=== PATIENT | female | born 1935 | race Caucasian/White ===

== ENCOUNTER → 2021-01-04 10:45 | Outpatient (BNVA) | payer MEDICARE, SELFPAY | PROVIDERS: PCP Internal Medicine; Visit Provider Orthopaedic Surgery | DX: M17.0 Bilateral primary osteoarthritis of knee (principal) | CPT/HCPCS: 20610; 99212; J1040 ==

== ENCOUNTER 2021-08-22 08:39 | Emergency (ER) | payer MEDICARE, SELFPAY ==
--- NOTE | ~2021-08-22 | XR_ITS ---
EXAMINATION: XR KNEE, RIGHT CLINICAL INFORMATION: Pain COMPARISON: 08/13/2019 TECHNIQUE: Two views of the right knee. FINDINGS: No fracture or subluxation. Moderate to severe medial compartment joint space narrowing. Narrowing of the patellofemoral compartment. Tricompartmental prominent marginal osteophytes. No joint effusion. XR/XR knee RT 2V IMPRESSION: Severe tricompartmental degenerative changes of the right knee, similar to previous.
[2021-08-22 08:57] VITALS: BP 173/122; PULSE 108; RESP 18; TEMP 36.6; O2SAT 98; BMI 41.1
--- NOTE | 2021-08-22 09:41 | ED_ITS ---
HPI - Extremity Injury (Lower) General Chief Complaint: Extremity Injury, Lower Stated Complaint: rt leg/hip pain Time Seen by Provider: 08/22/21 09:40 Source: patient and family ( Daughter) Mode of arrival: ambulatory Limitations: no limitations History of Present Illness HPI Narrative: 86-year-old female came in for evaluation of right knee pain. Patient complain of chronic right knee pain, patient received intra-articular steroid injection regularly by an Orthopedic, patient declined any trauma or recent fall, patient is concerned because right knee frequent give out. No fever, no chills. Related Data Previous Rx's Medication Instructions Recorded ibuprofen 400 mg tablet 400 mg PO Q8H PRN #14 tab 08/22/21 ibuprofen 400 mg tablet 400 mg PO Q8H PRN #20 tab 08/22/21 Allergies Allergy/AdvReac Type Severity Reaction Status Date / Time No Known Allergies Allergy Verified 08/22/21 09:40 Review of Systems Review of Systems: All other systems are reviewed and are negative Constitutional: Reports as per HPI and Reports no additional constitutional complaints Eyes: Reports as per HPI and Reports no additional eye complaints Reports system reviewed and no additional complaints, except as documented Cardiovascular: Reports as per HPI and Reports no additional cardiovascular complaints Respiratory: Reports as per HPI and Reports no additional respiratory complaints Gastrointestinal: Reports as per HPI and Reports no additional gastrointestinal complaints Genitourinary: Reports no additional female genitourinary complaints Musculoskeletal: Reports no additional musculoskeletal complaints Skin/Breast: Reports system reviewed and no additional complaints, except as docu Psychiatric: Reports no additional psychiatric complaints Endocrine: Reports no additional endocrine complaints Hematologic/Lymphatic: Reports no additional hematologic/lymphatic complaints Allergic/Immunologic: Reports no additional allergic/immunologic complaints Reports system reviewed and no additional complaints, except as documented and Reports Abnormal speech present [facility] Past Medical History Medical History Arthritis Social History Social History (Updated 01/04/21 @ 10:59 by Amira Abbasi CMA) Advance Directives: No Current occupational status: retired Current occupation: right handed Physical Exam Vital Signs: Vital Signs: Last Vital Signs Temp 97.9 F 08/22/21 08:57 Pulse 120 H 08/22/21 10:33 Resp 18 08/22/21 10:33 BP 153/83 H 08/22/21 10:33 Pulse Ox 97 08/22/21 10:33 Body Mass Index 41.1 vital signs have been reviewed as appeared to be correct. Blood pressure normal. Heart rate normal. Respiration rate normal. Temperature normal. Oxygen saturation normal. Appearance: Alert. Oriented X3. No acute distress. Head: Normal external exam. Normocephalic. Atraumatic. No Jaramillo signs noted. No raccoon eyes noted Eyes: PERRLA. EOMI. Conjunctiva and sclera normal. Eyelids normal. ENT: TM's Normal. Pharynx normal. Uvula midline. Moist mucous membranes. No trismus noted. No drooling noted. No muffled voice noted. Neck: Normal inspection. Neck supple. FROM. No adenopathy. Thyroid Normal. No meningeal signs. No neck mass noted. CVS: Normal heart rate and rhythm. Heart sound normal. No murmurs noted. Pulses normal throughout. Respiratory: No respiratory distress. Painless inspiration. Breath sounds normal. No wheezes/rales/rhonchi noted. Chest nontender. No accessory muscle usage noted or decreased air movement noted. Abdomen: Soft and nontender. Bowel sounds normal in all 4 quadrants. No distention noted. No organomegaly noted. No visible injury noted. Back: No CVA tenderness. Full range of motion noted. Skin: Skin warm and dry. Normal skin color. Normal skin turgor. No rashes/lesions/lacerations noted. Extremities: Right knee exam: Mild tenderness, no step-off, no deformity, no ligamentous injuries. no sign of cellulitis no redness, no hardness. Neuro: Oriented X 3. Cranial nerve exam: II-XII are grossly intact No motor deficit. No sensory deficit. Reflexes normal. Course Course Course Narrative: acute on chronic right knee pain secondary to osteoarthritis. X-ray show no acute deformity, patient has an appointment with Orthopedic in 3 days start the patient on ibuprofen, knee immobilizer, ice, follow-up with ortho. MDM - Extremity Injury (Lower) Imaging Data right knee x-ray: Radiologist's impression: Severe tricompartmental degenerative changes of the right knee, similar to previous. ? Discharge Plan Discharge Clinical Impression: Osteoarthritis Patient Disposition: Home, Self-Care Instructions: Osteoarthritis (ED) Prescriptions: New ibuprofen 400 mg tablet 400 mg PO Q8H PRN (Reason: pain) Qty: 14 RF: 0 ibuprofen 400 mg tablet 400 mg PO Q8H PRN (Reason: pain) Qty: 20 RF: 0 Referrals: Say Hare MD [Physician] - 2 days Nico Royla MD [Primary Care Provider] - 2 days Interventions: ED Discharge Assessment Last Done: 08/22/21 10:35 Discharge Date/Time: 08/22/21 10:40
[2021-08-22] MEDS: Ibuprofen 600 MG TABLET PO (09:54)
[2021-08-22 10:33] VITALS: BP 153/83; PULSE 120; RESP 18; O2SAT 97
== END 2021-08-22 10:40 | disposition home or self-care (01) ==
PROVIDERS: Emergency Provider Emergency Medicine; PCP Internal Medicine
DX: M17.11 Unilateral primary osteoarthritis, right knee (principal)
CPT/HCPCS: 73560; 99283; 99284

== ENCOUNTER → 2021-08-25 11:14 | Outpatient (BNVA) | payer MEDICARE, SELFPAY | PROVIDERS: PCP Internal Medicine; Visit Provider Orthopaedic Surgery | DX: M17.0 Bilateral primary osteoarthritis of knee (principal) | CPT/HCPCS: 20610; 99212; J1100 ==

== ENCOUNTER → 2022-02-03 09:35 | Outpatient (BNVA) | payer MEDICARE, SELFPAY | PROVIDERS: PCP Internal Medicine; Visit Provider Orthopaedic Surgery | DX: M17.11 Unilateral primary osteoarthritis, right knee (principal) | CPT/HCPCS: 20610; 99212; J1100 ==

== ENCOUNTER 2022-03-23 08:00 | Outpatient (RCR) | payer MEDICARE, SELFPAY ==
--- NOTE | 2022-02-15 13:15 | MHC.PT.EP ---
[facility] [place] Office [place] Office [place] Office [address] Daya Galvez [address] [phone] F: [phone] F: [phone] F: [phone] F: [phone] Physical Therapy Plan of Care Date of Evaluation: Date of Surgery: Diagnosis: This is a 86 yo female presenting to skilled PT with a script for OA of R knee. Assessment: This is a 86 yo female presenting to skilled PT with a script for OA of R knee. Patient has RLE pain (LLE has been okay), pain has been ongoing for a few months. Pain started after she was more sedentary during a trip to [place]. She has been getting regular cortisone injections prior to this increase in pain with the last occurring about a month ago. Pain comes and goes, radiates from R buttock to the ankle (happens occasionally) but moreso at the lateral aspect of the knee. Pain is sharp throughout the leg and burning at the knee. She states that her knee jc and is unstable. She walks with a straight cane that is elevated to prevent trunk flexion. She also has a rollator at home but this moves too fast for her. She lives at her daughter's house which is one floor. She has 3 steps inside the house with B handrails and a step to enter with single grab bar. She has a shoulder chair and full tub. Assessment reveals pain that ranges up to a 8/10. She demos decreased lumbar hip and knee ROM, decreased lumbar hip and knee strength, impaired gait pattern with associated pain, impaired joint mobility throughout GHJ and PF joint as well as gross functional decline with walking, standing and stairs. She is a good candidate for skilled PT 2x/wk for 5wks. 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 Manual therapy to restore motion and function. Therapeutic exercise to improve strength and flexibility. Neuromuscular re-education for posture and balance. Therapeutic activities to return to functional activities of daily living. Electronically signed by: Baylee Weber PT Please sign and return to therapist. Thank you for your referral.
--- NOTE | 2022-03-23 09:10 | MHC.PT.DC ---
[facility] [place] Office [place] Office [place] Office [address] Daya Galvez [address] [phone] F: [phone] F: [phone] F: [phone] F: [phone] Physical Therapy Discharge Report Diagnosis: This is a 86 yo female presenting to skilled PT with a script for OA of R knee. Date of Surgery: Date of Evaluation: 02/15/22 Date of Discharge: 03/23/22 Treatments to Date: 9 Cancellations to Date: 0 No Shows to Date: 0 Discharge Status: Achieved Goals Improved Function Independent with HEP Patient Elected to Stop Recommend MD Follow-up Discharge Summary: Patient with less pain today than on Sunday. She was instructed through her HEP which she is comfortable with. She will be participating in pool exercises and will follow up with ortho next month. She reports PT was helpful for hip pain but still has knee symptoms which we had discussed in regards to severity of arthritis. At this time we have plateaued in progress and she is ready and confident in DC. Electronically signed by: Baylee Weber PT Please sign and return to therapist. Thank you for your referral.
== END 2022-03-23 09:10 | disposition home or self-care (01) ==
LOC: HO.PTCHIC 08:00
PROVIDERS: PCP Internal Medicine; Visit Provider Orthopaedic Surgery
DX: M17.11 Unilateral primary osteoarthritis, right knee (principal); R26.9 Unspecified abnormalities of gait and mobility
CPT/HCPCS: 97110; 97112; 97163; 97530

== ENCOUNTER → 2022-05-05 10:27 | Outpatient (BNVA) | payer MEDICARE, SELFPAY | PROVIDERS: PCP Internal Medicine; Visit Provider Orthopaedic Surgery | DX: M17.11 Unilateral primary osteoarthritis, right knee (principal) | CPT/HCPCS: 99212 ==

== ENCOUNTER → 2022-07-17 14:12 | Outpatient (BNVA) | payer MEDICARE, SELFPAY | PROVIDERS: PCP Internal Medicine; Visit Provider Orthopaedic Surgery | DX: M17.11 Unilateral primary osteoarthritis, right knee (principal) | CPT/HCPCS: 20610; 99212; J1100 ==

== ENCOUNTER → 2022-10-19 14:58 | Outpatient (BNVA) | payer MEDICARE, SELFPAY | PROVIDERS: PCP Internal Medicine; Visit Provider Orthopaedic Surgery | DX: M17.11 Unilateral primary osteoarthritis, right knee (principal) | CPT/HCPCS: 20610; 99212; J1100 ==

== ENCOUNTER 2023-03-07 06:55 | Outpatient (REF) | payer MEDICARE, SELFPAY ==
--- NOTE | ~2023-03-07 | XR_ITS ---
EXAMINATION: XR LUMBOSACRAL SPINE CLINICAL INFORMATION: Radiculopathy COMPARISON: None available. TECHNIQUE: Three views of the lumbosacral spine. FINDINGS: No fracture or dislocation. There is curvature of the lower lumbar spine to the left. There is mild 7 mm anterior subluxation of L3 L5 with respect to S1. There is multilevel degenerative disc disease and spondylosis seen at all levels. There is lower lumbar spine facet arthritis. There is arthritis at the right hip joint. There is evidence of mild atherosclerotic disease. XR/XR lumbar spine 2-3V IMPRESSION: Mild scoliosis. Multilevel severe degenerative changes. 7 mm anterior subluxation of L5 with respect to S1, uncertain whether this is related to facet arthritis or could be related to old pars defect.
[2023-03-07 11:33] LABS: MANUAL DIFF FLAG NO
[2023-03-07 11:59] LABS: Basophils Absolute Auto 0.1 X10*3/uL (0.0-0.2); Basophils Percent Auto 0.7 % (0-2); Eosinophils Absolute Auto 0.2 X10*3/uL (0.0-0.4); Eosinophils Percent Auto 2.4 % (0-4); Hematocrit 39.3 % (37.0-47.0); Hemoglobin 13.2 g/dl (12.0-16.0); Imm Gran Abs Auto 0.05 X10*3/uL (0.00-0.03); Imm Gran Pct Auto 0.6 % (0.0-0.4); Lymphocytes Absolute Auto 1.9 X10*3/uL (1.2-4.9); Lymphocytes Percent Auto 22.8 % (20-40); Mean Corpuscular HGB Conc 33.6 g/dl (31.0-35.0); Mean Corpuscular Hemoglobin 32.4 pg (27.0-33.0); Mean Corpuscular Volume 96.3 fL (80.0-98.0); Mean Platelet Volume 10.4 fL (9.4-12.3); Monocytes Absolute Auto 0.7 X10*3/uL (0.1-1.2); Monocytes Percent Auto 7.9 % (2-11); Neutrophils Absolute Auto 5.5 x10*3/uL (2.0-8.3); Neutrophils Percent Auto 65.6 % (45-73); Platelet Count 277 X10*3/uL (160-400); Red Blood Count 4.08 X10*6/uL (4.20-5.50); Red Cell Distribution Width 13.1 % (11.0-16.0); White Blood Count 8.3 X10*3/uL (4.8-10.8)
[2023-03-07 12:46] LABS: Alanine Aminotransferase 14 U/L (0-31); Albumin Level 3.7 g/dL (3.5-5.0); Alkaline Phosphatase 135 U/L (39-117); Anion Gap 12 (12-20); Aspartate Amino Transferase 19 U/L (5-31); Bilirubin Total 1.3 mg/dL (0.0-1.0); Blood Urea Nitrogen 13 mg/dL (9-16); Carbon Dioxide 26 mmol/L (22-29); Chloride 110 mmol/L (96-108); Cholesterol 144 mg/dL; Estimated Glomerular Filt Rate > 60; Glucose Fasting 101 mg/dL (60-99); HDL Cholesterol 57 mg/dL; LDL Cholesterol Calculated 74 mg/dl; Potassium 4.1 mmol/L (3.3-5.1); Sodium 144 mmol/L (135-145); Total Protein 6.1 g/dL (6.5-8.0); Triglycerides 65 mg/dL
[2023-03-07 13:21] LABS: Vitamin B12 459 pg/mL (200-900)
[2023-03-14 13:28] LABS: Vitamin D 25-OH, D2 <4 ng/mL; Vitamin D 25-OH, D3 22 ng/mL; Vitamin D 25-OH, Total 22 ng/mL (30-100)
== END 2023-03-07 06:56 | disposition home or self-care (01) ==
LOC: HO.HMGCX 06:55
PROVIDERS: PCP Internal Medicine; Visit Provider Internal Medicine
DX: Z13.220 Encounter for screening for lipoid disorders (principal); M54.16 Radiculopathy, lumbar region; I48.91 Unspecified atrial fibrillation; I49.9 Cardiac arrhythmia, unspecified; M16.0 Bilateral primary osteoarthritis of hip; M17.0 Bilateral primary osteoarthritis of knee; E55.9 Vitamin D deficiency, unspecified
CPT/HCPCS: 36415; 72100; 80053; 80061; 82306; 82607; 84439; 84443; 85025

== ENCOUNTER 2023-04-27 08:28 | Outpatient (REF) | payer MEDICARE, SELFPAY ==
[2023-04-27 12:13] LABS: Estimated Average Glucose 91 mg/dL; Hemoglobin A1c % 4.8 %
[2023-04-27 12:38] LABS: Alanine Aminotransferase 11 U/L (0-31); Albumin Level 3.7 g/dL (3.5-5.0); Alkaline Phosphatase 116 U/L (39-117); Anion Gap 13 (12-20); Aspartate Amino Transferase 19 U/L (5-31); Bilirubin Total 1.1 mg/dL (0.0-1.0); Blood Urea Nitrogen 15 mg/dL (9-16); Calcium 9.1 mg/dL (8.4-10.2); Carbon Dioxide 25 mmol/L (22-29); Chloride 109 mmol/L (96-108); Estimated Glomerular Filt Rate > 60; Glucose Random 107 mg/dL (60-115); Potassium 4.1 mmol/L (3.3-5.1); Sodium 143 mmol/L (135-145); Total Protein 6.4 g/dL (6.5-8.0)
[2023-04-27 12:44] LABS: TSH reflex Free T4 4.54 uIU/mL (0.32-4.0)
[2023-04-27 13:16] LABS: Free T4 (Free Thyroxine) 0.99 ng/dL (0.71-1.85)
== END 2023-04-27 08:29 | disposition home or self-care (01) ==
LOC: HO.HMGCLDS 08:28
PROVIDERS: PCP Internal Medicine; Visit Provider Internal Medicine
DX: R73.03 Prediabetes (principal); R79.89 Other specified abnormal findings of blood chemistry
CPT/HCPCS: 36415; 80053; 83036; 84439; 84443

== ENCOUNTER 2023-05-28 14:32 | Outpatient (REF) | payer MEDICARE, SELFPAY ==
[2023-05-28 16:08] LABS: Prothrombin Time 12.3 SEC (11.1-13.3)
== END 2023-05-28 14:33 | disposition home or self-care (01) ==
LOC: HO.LAB 14:32
PROVIDERS: PCP Internal Medicine; Referring Provider Internal Medicine; Visit Provider Internal Medicine
DX: I48.91 Unspecified atrial fibrillation (principal)
CPT/HCPCS: 36415; 85610; 99202

== ENCOUNTER 2023-05-28 14:32 | Outpatient (AMB) | payer MEDICARE, SELFPAY ==
--- NOTE | 2023-05-28 14:42 | MHC.OFFVIS ---
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 She went to PCP for routine visit couple months ago. At that time, it seems that she had atrial fibrillation rapid rate. Then she was put on small dose of beta-blockers. She states she really does not feel any major symptoms. Some times she may feel some heart racing in the mornings but otherwise feels fine. No clear-cut angina or shortness of breath. No history of any coronary artery disease or myocardial infarction or cardiomyopathy. Generally healthy most of her life. [facility] Medical History Arthritis Social History Housing: House Patient Tobacco Use Status: Former Tobacco user e-Cigarette/Vaping Use: Never Used service: No Current occupational status: retired Current occupation: right handed Cognitive needs: No Hearing needs: No Vision needs: No Review of Systems Const Denies chills, Denies daytime sleepiness, Denies fatigue, Denies fever(s), Denies frequent falls, Denies night sweats, Denies snoring, Denies weakness, Denies weight gain and Denies weight loss Eyes Denies loss of vision ENT Denies dizziness and Denies hearing loss Card Denies chest pain, Denies chest pain with activity, Denies syncope, Denies rapid heart rate, Denies edema, Denies claudication, Denies leg edema, Denies lightheadedness, Denies palpitations, Denies dyspnea, Denies dyspnea on exertion and Denies orthopnea Resp Denies cough, Denies excessive phlegm production, Denies dyspnea, Denies dyspnea on exertion, Denies snoring and Denies wheezing GI Denies abdominal pain, Denies hematochezia, Denies change in bowel habits, Denies change in stool character, Denies heartburn, Denies nausea and Denies vomiting Denies hematuria, Denies urinary frequency and Denies dysuria Musc Denies arthralgias, Denies muscle weakness, Denies numbness and Denies tingling Skin/Breast Denies nail changes and Denies rash Neuro Denies Abnormal speech present, Denies dizziness, Denies syncope, Denies frequent falls, Denies loss of vision, Denies memory loss, Denies numbness, Denies tingling and Denies weakness Psych Denies depression and Denies memory loss Endo Denies fatigue and Denies palpitations Aller/Immun Denies wheezing Physical Exam Vital Signs: Last Vital Signs Pulse 96 05/28/23 14:43 BP 144/74 H 05/28/23 14:43 Const General: comfortable and no acute distress Orientation/consciousness: patient oriented x3 HEENT Other: Unremarkable Head: Yes normal to inspection Neck Neck: Yes normal visual inspection Chest Chest palpation & inspection: normal inspection of the chest Resp Auscultation: clear to auscultation bilaterally Cardio Palpation: normal PMI Heart sounds: S1 normal heart sound present, S2 normal heart sound present, no gallops, no murmurs and no rubs GI Palpation (GI): Soft to palpation Back/Spine/Pelvis Other: unremarkable Skin General skin exam: no rashes or lesions noted Neuro General: patient oriented x3 Speech: No Abnormal speech present Extrem General: Yes normal to inspection Psych Mental Status: mental status grossly normal Assessment & Plan Assessment & Plan (1) New onset atrial fibrillation: Code(s): I48.91 - Unspecified atrial fibrillation Plan Fibrillation with rapid rate. Today, based on vital signs and auscultation, rate seems okay but on the higher side. We discussed about pathophysiology of atrial fibrillation in great detail. Illustrations also shown to patient as well as daughter. She is currently on sustained release metoprolol 25 mg daily. We can double that up to 50 mg daily. Baseline labs are okay. Normal renal function. Protime INR not available, and that is ordered. Discussed about anticoagulation and they are willing. Can start Eliquis. Will get an echocardiogram for cardiac function as well as Holter for adequacy of rate control. Follow-up in a few weeks time. Orders: Orders CA echo transthoracic complete Today I48.91 - Unspecified atrial fibrillation ECG 3 day holter monitor Today I48.91 - Unspecified atrial fibrillation Prothrombin Time INR Today I48.91 - Unspecified atrial fibrillation Medications: New metoprolol succinate ER (Toprol XL) 50 mg PO DAILY 90 tabs 3RF I48.91 - Unspecified atrial fibrillation apixaban (Eliquis) 5 mg PO BID 180 tabs 3RF 90 days I48.91 - Unspecified atrial fibrillation Discontinued metoprolol succinate ER Discontinued Reason: Doctor's Order 25 mg PO DAILY 90 days 90 tabs 0RF Coding Level of Care Code New Pt Level 4 (91219) Diagnoses New onset atrial fibrillation I48.91
[2023-05-28 14:43] VITALS: BP 144/74; PULSE 96
== END 2023-05-28 15:38 | disposition home or self-care (01) ==
PROVIDERS: PCP Internal Medicine; Referring Provider Internal Medicine; Visit Provider Internal Medicine
DX: I48.91 Unspecified atrial fibrillation (principal)
CPT/HCPCS: 99204

== ENCOUNTER 2023-06-08 09:35 | Outpatient (AMB) | payer MEDICARE, SELFPAY ==
[2023-06-08 09:48] VITALS: BP 128/78; PULSE 92; O2SAT 94; BMI 39.2
--- NOTE | 2023-06-08 09:48 | A.OFFPC_ITS ---
Vital Signs 06/08/23 09:48 Height 4 ft 9 in Weight 181 lb 6 oz BMI 39.2 BP 128/78 Blood Pressure Location Lt brachial Position Sitting Pulse 92 Pulse Source Pulse Oximeter Pulse Oximetry (%) 94 Oxygen Delivery Method Room Air Intake Visit Reasons: 3m follow up Allergies No Known Allergies Allergy (Verified 06/08/23 09:49) Medication List - Last Reconciled 06/08/23 by Nico Royal MD apixaban (Eliquis) 5 mg PO BID 90 days gabapentin 100 mg PO BEDTIME ibuprofen 400 mg PO Q8H PRN metoprolol succinate ER (Toprol XL) 50 mg PO DAILY Tobacco use date assessed: 06/08/23 Last assessed Fall Risk: 06/08/23 Dental Screening Dental Screen Date: 06/08/23 Did you have a dental visit in the last 12 months?: No Did you have a dental problem in the last 6 months where you did not have access to dental care?: No Was dental information given to patient?: No HPI 3m follow up HPI Details Patient is 88-year-old female came in today for her regular follow-up appointment Last visit patient was diagnosed with atrial fibrillation, she has seen Dr. Garcia her metoprolol was increased to 50 mg and she was started on Eliquis as well. She is doing well on this regimen her heart rate is stable today. She has an appointment coming up for echocardiogram. I started her on gabapentin 100 mg last visit when she complained of pain in her right leg patient says that 100 mg did nothing for her. It seems as if she is having see Erika right-sided I am increasing the dose to 300 mg, I have ordered x-ray of her lumbar spine today. I did offer her appointment for pain management but she declined. She is here today with her daughter. Patient have postnasal drip she has been taking Mucinex I think it will be better if she start taking Claritin and Flonase nasal spray Her daughter says that she has both medications at home and she will give it to patient. Labs done at last visit showed abnormal TSH we repeated it again and it came back again high at 4.50. I am starting her on levothyroxine 25 mcg she is to repeat labs again in 6 weeks. She wants handicap placard lipids filled which I did for her. She has Medicare wellness visit coming up next month. [facility] Medical History Arthritis Social History Housing: House Patient Tobacco Use Status: Former Tobacco user e-Cigarette/Vaping Use: Never Used service: No Current occupational status: retired Current occupation: right handed Cognitive needs: No Hearing needs: No Vision needs: No Questionnaire Thrive Questionnaire Date Thrive assessed: 06/08/23 AUDIT C Alcohol Use Questionnaire (AUDIT-C) 1. How often do you have a drink containing alcohol?: Never 3. How often do you have six or more drinks on one occasion?: Never Total Score: 0 Score Reviewed/Action Taken: Yes Review of Systems Const Denies chills and Denies fever(s) ENT Denies epistaxis Card Denies chest pain Resp Denies chest congestion, Denies cough and Denies hemoptysis GI Denies diarrhea and Denies nausea Skin/Breast Denies rash Neuro Reports no additional complaints Psych Reports no additional complaints Endo Reports no additional complaints Physical exam (Primary Care) Vital Signs: Last Vital Signs Pulse 92 06/08/23 09:48 BP 128/78 06/08/23 09:48 Pulse Ox 94 06/08/23 09:48 Oxygen Delivery Method Room Air 06/08/23 09:48 BMI result Body Mass Index 39.2 Tobacco/Smoking Status: Tobacco use Status Tobacco use date assessed 06/08/23 06/08/23 09:50 Patient Tobacco Use Status Former Tobacco user 06/08/23 09:50 e-Cigarette/Vaping Use Never Used 06/08/23 09:50 Thrive Assessment: Date of Thrive Assessment Date Thrive assessed 06/08/23 06/08/23 09:50 Const General: cooperative and comfortable Orientation/consciousness: patient oriented x3 HENMT Head: Yes normocephalic Eyes General: appearance normal, both eyes and all related structures Neck Neck: Yes supple Resp Effort & Inspection: normal respiratory effort, no cough and no stridor Cardio Other: Irregularly irregular Heart sounds: S1 normal heart sound present and S2 normal heart sound present Skin General skin exam: turgor normal Neuro Other: Patient is in wheelchair General: patient oriented x3, tone normal and moves all extremities Extrem Other: Minimal edema ankles Assessment and Plan Assessment & Plan (1) Right lumbar radiculitis: Code(s): M54.16 - Radiculopathy, lumbar region (2) Osteoarthritis of knees, bilateral: Code(s): M17.0 - Bilateral primary osteoarthritis of knee (3) Elevated TSH: Code(s): R79.89 - Other specified abnormal findings of blood chemistry (4) LFT elevation: Code(s): R79.89 - Other specified abnormal findings of blood chemistry (5) Pre-diabetes: Code(s): R73.03 - Prediabetes (6) Atrial fibrillation: Code(s): I48.91 - Unspecified atrial fibrillation (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 Dior neurosurgery as patient had a cervical disc surgery June of last year She still have residual weakness left hand and arm Patient also suffer from lumbar radiculitis right side She is on high-dose gabapentin 600 mg 3 times a day through Dr. Dior is office Mammogram was this month Pap smear was through [facility] OBGYN patient does not want to have another Colonoscopy was declined. Patient already have lab order in the system through weight loss program [facility]. Return 1 year for physical exam Orders: Orders XR lumbar spine 2-3V Today M54.16 - Radiculopathy, lumbar region TSH reflex Free T4 6 Weeks R79.89 - Other specified abnormal findings of blood chemistry Medications: New levothyroxine Take it on empty stomach 25 mcg PO DAILY 90 tabs 0RF Changed From gabapentin 100 mg PO BEDTIME 90 caps 0RF To gabapentin 300 mg PO BEDTIME 30 caps 0RF Coding Level of Care Code Est Pt Level 4 (57732) Diagnoses Right lumbar radiculitis M54.16 Osteoarthritis of knees, bilateral M17.0 Elevated TSH R79.89 LFT elevation R79.89 Pre-diabetes R73.03 Atrial fibrillation I48.91 Hx of intermediate use of blood thinners Z92.29 Difficulty walking R26.2 Risk for falls Z91.81
== END 2023-06-08 10:22 | disposition home or self-care (01) ==
PROVIDERS: Visit Provider Internal Medicine
DX: M54.16 Radiculopathy, lumbar region (principal); I48.91 Unspecified atrial fibrillation; Z91.81 History of falling; Z92.29 Personal history of other drug therapy; M17.0 Bilateral primary osteoarthritis of knee; R79.89 Other specified abnormal findings of blood chemistry; R73.03 Prediabetes; R26.2 Difficulty in walking, not elsewhere classified
CPT/HCPCS: 99214

== ENCOUNTER → 2023-06-22 10:51 | Outpatient (REF) | payer MEDICARE, SELFPAY ==
--- NOTE | 2023-06-22 10:55 | CA_ITS ---
Transthoracic Echocardiogram Patient (Last, First, Middle): Kelli Romano, Gender: Female Date of : 1935 Age: 88 Procedure Date: 06/22/2023 Procedure Type: Transthoracic Echocardiogram Location: OP Height: 154.94 cm Weight: 80.29 kg BSA: 1.79 m2 Heart Rate: 98 bpm BP: 125 / 80 mmHg Hospital Corpsman: YANET Referring MD: Yash Garcia MD Symptoms: I48.91 - Unspecified atrial fibrillation Study Quality: Adequate ECG Rhythm: Atrial Fibrillation Conclusions: - Normal left ventricular size and systolic function. There is mildly increased left ventricular wall thickness. The visually estimated ejection fraction is between 55-60%. - Normal right ventricular cavity size and systolic function. - There is mild dilatation of the ascending aorta measuring 3.60 cm. Findings Left Ventricle Normal left ventricular size and systolic function. There is mildly increased left ventricular wall thickness. The visually estimated ejection fraction is between 55-60%. There is no evidence of regional wall motion abnormalities. Diastolic function is indeterminate on the basis of available data. Right Ventricle Normal right ventricular cavity size and systolic function. Atria The left atrium is mildly dilated. The right atrium is likely dilated. Aortic Valve Normal aortic valve structure and function. There is no aortic valve stenosis. There is trace (trivial) aortic valve regurgitation. Mitral Valve The mitral valve appears normal. There is trace mitral valve regurgitation. There is no mitral valve stenosis. Pulmonic Valve Normal pulmonic valve structure and function. There is trace pulmonic valve regurgitation. Tricuspid Valve Normal tricuspid valve structure. There is trace tricuspid valve regurgitation. Normal right atrial pressure. There is no evidence of pulmonary hypertension. Great Vessels There is mild dilatation of the ascending aorta measuring 3.60 cm. The visualized portions of the pulmonary artery and branches are normal. Venous The inferior vena cava is normal in size and collapses greater than 50% with inspiration. Pericardium/Pleural There is no evidence of pericardial effusion. Prior Study Comparison No prior study available for comparison. Measurements 2D Linear Measurements IVSd: 1.07 0.6-0.9/0.6-1.0 cm LVIDd: 4.53 3.9-5.3/4.2-5.9 cm LVIDd Index: 2.53 2.4-3.2/2.2-3.1 cm/m2 LVIDs: 3.53 2.0-3.6 cm LVPWd: 1.00 0.7-1.1 cm LA Diam: 4.40 2.7-3.8/3.0-4.0 cm LAIDs Index: 2.46 1.5-2.3 cm/m2 LV Mass: 202.05 67-162/88-224 g LV Mass Index: 112.87 43-95/49-115 g/m2 LVOT Diam: 1.80 3.0+(-)1.3 cm 2D Systolic Function EF 4C: 61.00 >55% EF 2C: 55.10 >55% EF BiP: 57.00 >55% Mitral Valve MV Pk E: 0.99 MV Decel Time: 143.00 E'Lateral: 10.70 E'Medial: 9.14 E/E' Med: 10.80 E/E' Lat: 9.30 PHT: 42.00 MVA PHT: 5.24 Decel K[place]: 6.91 Aortic Valve AoV Pk Brennan: 1.14 AoV Mn Brennan: 0.79 AoV VTI: 0.23 AoV Pk Grad: 5.00 Aov Mn Grad: 3.00 ASHLEY Cont.VTI: 1.85 LVOT LVOT Pk Brennan: 0.89 LVOT Mn Brennan: 0.61 LVOT VTI: 0.17 LVOT Pk Grad: 3.00 LVOT Mn Grad: 2.00 LVOT Diam: 1.80 LVOT Area: 2.54 Diastolic Function MV Pk E: 0.99 E'Medial: 9.14 E/E' Med: 10.80 E' Laterial: 10.70 E/E' Lat: 9.30 Right Ventricle TAPSE (mm): 17.40 TVS' Brennan: 11.00 Tricuspid Valve TR Pk Brennan: 2.05 TR Pk Grad: 17.00 RA Press: 3.00 RVSP: 20.00 Great Vessels Aorta Sinus of Valsalva: 3.60 2.0-3.5 cm Ao Asc: 3.60 2.1-3.4 cm Pulmonary Valve PV Pk Brennan: 0.90 Peak PV Grad: 3.00 Updated in Other Vendor System with Status of Final Jeet Gaines MD electronically signed on 06/25/2023 6:38:14 PM with status of Final
--- NOTE | 2023-06-22 10:55 | HM_ITS ---
Conclusion: 1. Patient was monitored for total period of 2 days and 23 hours 2. Baseline was atrial fibrillation with average heart of 86 beats per minute overall adequate rate control 3. Rare PVCs noted with 1 3 beat thierno of nonsustained VT at 136 beats per minute 4. No significant pauses noted 5. No patient reported symptoms MTDD
== END ==
LOC: HO.CARD 10:51
PROVIDERS: PCP Internal Medicine; Visit Provider Internal Medicine
DX: I48.91 Unspecified atrial fibrillation (principal)
CPT/HCPCS: 93242; 93306

== ENCOUNTER → 2023-06-22 10:55 | Outpatient (BNV) | payer MEDICARE, SELFPAY | PROVIDERS: PCP Internal Medicine; Visit Provider Internal Medicine Cardiovascular Disease | DX: I48.91 Unspecified atrial fibrillation (principal) | CPT/HCPCS: 93244; 93306 ==

== ENCOUNTER 2023-07-05 08:56 | Outpatient (AMB) | payer MEDICARE, SELFPAY ==
--- NOTE | 2023-07-05 09:08 | A.OFFVIS_ITS ---
Intake Intake Visit Reasons: OV - right knee injection, last inj 10/19/22 Intake Note: Kelli is an 88 year old female who presents today for a follow up of her right knee OA. Last Injection done 10/19/22. She reports adequate relief for about a month and would like to repeat injection today. Allergies No Known Allergies Allergy (Verified 06/08/23 09:49) HPI OV - right knee injection, last inj 10/19/22 HPI Details 88 yo F returns with ongoing right knee pain. She walks but with pain and uses a walker. Injections have been helpful in the past. She is not a surgical candidate. [facility] Medical History Arthritis Social History Housing: House Patient Tobacco Use Status: Former Tobacco user e-Cigarette/Vaping Use: Never Used service: No Current occupational status: retired Current occupation: right handed Cognitive needs: No Hearing needs: No Vision needs: No Physical Exam Extrem Other: right knee iwth skin c/d/i no effusion TTP medial joint line Office Procedures Joint Injection/Drain Joint Injection/Drain Details: Injected 1 mL of Decadron and 3 mL 1% lidocaine and 3 mL of 0.25% Marcaine. Site was prepped using aseptic technique. Patient tolerated the procedure well. Primary Site: right knee Approach Used: anterolateral Coding 09412 - Large joint Procedure code (CPT) selection complete Results Reviewed Results Reviewed: 07/05/23 09:06 BUPivacaine MPF 0.25 % [Sensorcaine-MPF 0.25% 10 ML] 10 ml .ROUTE .STK-MED ONE Lidocaine HCl 2 % MPF [Xylocaine 2 % MPF] 5 ml .ROUTE .STK-MED ONE dexAMETHasone sod phosphate [Decadron] 4 mg .ROUTE .STK-MED ONE Assessment & Plan Assessment & Plan (1) Osteoarthritis of knees, bilateral: Code(s): M17.0 - Bilateral primary osteoarthritis of knee Plan: This is an 88 yo F with right knee pain 2/2 OA. Injections have been helpful for her in the past and she would like to repeat injections today. I injected her right knee and she will f/u as needed. If injections aren't helpful may consider ULLOA. Coding Level of Care Code Est Pt Level 3 (68378) Diagnoses Osteoarthritis of knees, bilateral M17.0 CPT Codes Coding - 75446 Large joint: 25575 - Large joint ([id number])
== END 2023-07-05 09:25 | disposition home or self-care (01) ==
PROVIDERS: PCP Internal Medicine; Visit Provider Orthopaedic Surgery
DX: M17.0 Bilateral primary osteoarthritis of knee (principal)
CPT/HCPCS: 20610; 99213

== ENCOUNTER → 2023-07-05 08:56 | Outpatient (BNVA) | payer MEDICARE, SELFPAY | PROVIDERS: PCP Internal Medicine; Visit Provider Orthopaedic Surgery | DX: M17.0 Bilateral primary osteoarthritis of knee (principal) | CPT/HCPCS: 20610; 99212; J1100 ==

== ENCOUNTER 2023-07-23 14:54 | Outpatient (AMB) | payer MEDICARE, SELFPAY ==
[2023-07-23 15:02] VITALS: BP 136/68; PULSE 67; BMI 39.2
--- NOTE | 2023-07-23 15:02 | MHC.OFFVIS ---
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 Recently seen in consultation regarding atrial fibrillation. Atrial fibrillation was detected on routine PCP visit. After she was seen in the clinic here, beta-mino dose was increased. Overall, feels fine. No cardiac symptoms at all. Rare palpitations. No known coronary disease, myocardial infarction or cardiomyopathy. [facility] Medical History Arthritis Social History Housing: House Patient Tobacco Use Status: Former Tobacco user e-Cigarette/Vaping Use: Never Used service: No Current occupational status: retired Current occupation: right handed Cognitive needs: No Hearing needs: No Vision needs: No Review of Systems Const Denies weakness ENT Denies dizziness Card Denies chest pain, Denies chest pain with activity, Denies syncope, Denies rapid heart rate, Denies pedal edema, Denies edema, Denies leg edema, Denies lightheadedness, Denies palpitations, Denies dyspnea, Denies dyspnea on exertion and Denies orthopnea Resp Denies cough, Denies dyspnea and Denies dyspnea on exertion GI Denies hematochezia and Denies change in stool character Musc Denies abnormal gait, Denies muscle cramps, Denies muscle weakness, Denies numbness, Denies radiating pain into limb and Denies tingling Neuro Denies abnormal gait, Denies dizziness, Denies syncope, Denies numbness, Denies tingling and Denies weakness Endo Denies palpitations Physical Exam Vital Signs: Last Vital Signs Pulse 67 07/23/23 15:02 BP 136/68 07/23/23 15:02 BMI result Body Mass Index 39.2 Const General: comfortable and no acute distress Orientation/consciousness: patient oriented x3 HEENT Other: Unremarkable Head: Yes normal to inspection Neck Neck: Yes normal visual inspection Chest Chest palpation & inspection: normal inspection of the chest Resp Auscultation: clear to auscultation bilaterally Cardio Palpation: normal PMI Heart sounds: S1 normal heart sound present, S2 normal heart sound present, no gallops, no murmurs and no rubs GI Palpation (GI): Soft to palpation Back/Spine/Pelvis Other: unremarkable Skin General skin exam: no rashes or lesions noted Neuro General: patient oriented x3 Extrem General: Yes normal to inspection Psych Mental Status: mental status grossly normal Assessment & Plan Assessment & Plan (1) New onset atrial fibrillation: Code(s): I48.91 - Unspecified atrial fibrillation (2) Encounter for anticoagulation discussion and counseling: Code(s): Z71.89 - Other specified counseling Plan Cardiac studies reviewed. Echocardiogram with LVEF of 55-60%. No wall motion abnormalities and otherwise unremarkable. In the Holter monitor, underlying rhythm is atrial fibrillation average rate of 86/Min. Overall, thought to have had adequate rate control. We discussed about cardioversion but patient felt that at her age she would rather just stay on rate control only. That seems very reasonable. Hence continue metoprolol without changes. Eliquis without changes. Indication for the same discussed including stroke risk without anticoagulation. Otherwise, she seems stable. She plans to go to [place] but when she returns, we can see her in about 6 months time. Discussed with family who came for appointment. Total time spent including review of clinical data, counseling, documentation, coordination of care-31 minutes. Coding Level of Care Code Est Pt Level 4 (99613) Diagnoses New onset atrial fibrillation I48.91 Encounter for anticoagulation discussion and counseling Z71.89
== END 2023-07-23 15:27 | disposition home or self-care (01) ==
PROVIDERS: PCP Internal Medicine; Visit Provider Internal Medicine
DX: I48.91 Unspecified atrial fibrillation (principal); Z71.89 Other specified counseling
CPT/HCPCS: 99214

== ENCOUNTER → 2023-07-23 14:54 | Outpatient (BNVA) | payer MEDICARE, SELFPAY | PROVIDERS: PCP Internal Medicine; Visit Provider Internal Medicine | DX: I48.91 Unspecified atrial fibrillation (principal); Z79.01 Long term (current) use of anticoagulants; Z79.899 Other long term (current) drug therapy | CPT/HCPCS: 99212 ==

== ENCOUNTER 2023-07-27 14:15 | Outpatient (AMB) | payer MEDICARE, SELFPAY ==
[2023-07-27 14:16] VITALS: BP 132/70; PULSE 71; O2SAT 96; BMI 39.8
--- NOTE | 2023-07-27 14:16 | AM.OFFVISMDC ---
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 Patient was started on levothyroxine 25 mcg she is due for TSH check Patient does not want take anything stronger for the pain, currently taking Tylenol 2 times a day. 500 mg HPI Comments History of Present Illness Details [facility] Medical/social history reviewed Past medical history reviewed [place] of care / care team list updated Surgical/ hospitalization history reviewed Current medications including OTC and supplements reviewed Family history reviewed Tobacco controlled form updated Alcohol use form updated Illicit drug use in social history reviewed Current diagnosis of depression ?screening updated Appropriate PHQ 2/PHQ-9 completed . Vital signs reviewed Alcohol tobacco drug use reviewed and discussed . MMSE completed . ? Fall risk: ?Assessed Fall history: yes Have you had any falls with injury in the past year?? yes Have you had 2 or more falls in the past year?? No Fall risk assessment completed Home safety discussed with the patient Functional ability assessed and discussed and documented Activities of daily living reviewed and appropriate actions taken . HRA filled out by the patient and reviewed by provider and scanned . Appropriate written screening schedule established . Any health advise needed provided . Advance care planning discussed with the patient , necessary paperwork filled Examination IPPE/AWE: Balance unable to examin, patient cant stand without support Romberg failed Tandem walk failed walk-in turn failed rise from sit to stand failed . ?Hearing ?whisper test pass . Medication list reviewed, patient is stable on medications All other providers patient is seeing discussed and noted . [facility] Medical History Arthritis Social History Housing: House Patient Tobacco Use Status: Former Tobacco user e-Cigarette/Vaping Use: Never Used service: No Current occupational status: retired Current occupation: right handed Cognitive needs: No Hearing needs: No Vision needs: No Questionnaire Medicare Wellness Checkup What is your age?: 80 or older What gender do you identify with?: female During the past 4 weeks, how much have you been bothered by emotional problems such as feeling anxious, depressed, irritable, sad or downhearted, and blue?: slightly During the past 4 weeks, has your physical & emotional health limited your social activities with family, friends, neighbors, or groups?: not at all During the past 4 weeks, how much bodily pain have you generally had?: moderate pain During the past 4 weeks, was someone available to help you if you needed & wanted help?: yes, as much as I wanted During the past 4 weeks, what was the hardest physical activity you could do for at least 2 minutes?: very light Can you get to places out of walking distance without help? (For eg., can you travel alone on buses, taxis or drive your car?): No Can you go shopping for groceries or clothes without someone's help?: No Can you prepare your own meals?: No Can you do your housework without help?: No Because of any health problems, do you need the help of another person with your personal care needs such as eating, bathing, dressing or getting around the house?: Yes Can you handle your own money without help?: No During the past 4 weeks, how would you rate your health in general?: fair During the past 4 weeks how have things been going for you?: good & bad parts about equal Are you having difficulties driving your car?: not applicable, I don't use a car Do you always fasten your seat belt when you are in a car?: yes, usually During past 4 weeks, have you been bothered by the following: never: Sexual problems?, seldom: Problems using the telephone?, sometimes: Trouble eating well? and Tiredness or fatigue? and often: Falling or dizzy when standing up and Teeth or denture problems? Have you fallen 2 or more times in the past year?: No Are you afraid of falling?: Yes Are you a smoker?: no During the past 4 weeks, how many drinks of wine, beer, or other alcoholic beverages did you have?: no alcohol at all Do you exercise for about 20 minutes 3 or more times a week?: no, I usually do not exercise this much Have you been given information to help with the following?: no: Hazards in your house that might hurt you? and no: Keeping track of your medications? How often do you have trouble taking medicines the way you have been told to take them?: I always take medicine as prescribed How confident are you that you can control & manage most of your health problems?: somewhat confident What is your race?: White Mini Mental State Exam (MMSE) Orientation What is the (year) (season) (date) (day) (month)?: year, season, date, day and month Where are we (state) (county) (town or city) (hospital) (floor)?: state, county, town or city, hospital/clinic and floor Score Score: 10 Activity of Daily Living Bathing - sponge bath, tub bath or shower: receives help in bathing only one body part (such as back or leg) Dressing - getting clothes from closets & drawers, including inner/outer garments & fasteners.: gets clothes & gets completely dressed without help Toileting - going to the 'toilet room' for urine/bowel elimination & cleaning self/arranging clothes: goes to toilet room, cleans self, arranges clothes without help Transfer: moves in & out of bed or chair with help Continence: controls urination/bowel movements completely by self Feeding: feeds self without help Total Score: 0 Information obtained from: patient Using telephone: independent Traveling: dependent Shopping: dependent Preparing meals: dependent Housework: dependent Taking medicine: dependent Managing money: dependent PHQ-9 Over the last 2 weeks, how often have you been bothered by any of the following problems? 1. Little interest or pleasure in doing things: several days 2. Feeling down, depressed, or hopeless: several days 3. Trouble falling or staying asleep, or sleeping too much: nearly every day 4. Feeling tired or having little energy: nearly every day 5. Poor appetite or overeating: several days 6. Feeling bad about yourself - or that you are a failure or have let yourself or your family down: several days 7. Trouble concentrating on things, such as reading the newspaper or watching television: several days 8. Moving or speaking so slowly that other people could have noticed. Or the opposite - being so fidgety or restless that you have been moving around a lot more than usual: several days 9. Thoughts that you would be better off or of hurting yourself in some way: several days Total score: 13 Depression Screening Interpretation: Positive Depression Screening Follow-up: Declines treatment Depression Screening Done: Yes 46184 - PHQ-9 Billing: Yes Source: Developed by Drs. Adonis Sandra, Aline Payne, Venu Segal and colleagues, with an educational stephenie from [employer]. Physical Exam Vital Signs: Last Vital Signs Pulse 71 07/27/23 14:16 BP 132/70 07/27/23 14:16 Pulse Ox 96 07/27/23 14:16 BMI result Body Mass Index 39.8 Assessment & Plan Assessment & Plan (1) Medicare annual wellness visit, subsequent: Code(s): Z00.00 - Encounter for general adult medical examination without abnormal findings Quality Reporting (2019) Depression/Bipolar (159/160/161/177) PHQ-9: Total score: 13 Coding Level of Care Code Medicare Subsequent (G0439) Diagnoses Medicare annual wellness visit, subsequent Z00.00 CPT Codes Advance Care Planning - Time spent: 1-15 minutes, not on file ([id number]) Advance Care Planning Forms completed: Health Care Proxy and MOLST Time spent: 1-15 minutes, not on file
== END 2023-07-27 15:27 | disposition home or self-care (01) ==
PROVIDERS: PCP Internal Medicine; Visit Provider Internal Medicine
DX: Z00.00 Encounter for general adult medical examination without abnormal findings (principal)
CPT/HCPCS: 1124F; G0439

== ENCOUNTER 2023-07-27 14:46 | Outpatient (REF) | payer MEDICARE, SELFPAY | END 2023-07-27 14:47 | disposition home or self-care (01) | LOC: HO.HMGCLDS 14:46 | PROVIDERS: PCP Internal Medicine; Visit Provider Internal Medicine | DX: R94.6 Abnormal results of thyroid function studies (principal) | CPT/HCPCS: 36415; 84443 ==

== ENCOUNTER 2023-09-01 11:37 | Emergency (ER) | payer MEDICARE, SELFPAY ==
--- NOTE | ~2023-09-01 | XR_ITS ---
Indication: Fall EXAMINATION: Two-view chest, lumbar sacral spine, right hip. Single view pelvis 2 views of the chest were obtained and there are no films to compare. Findings; No pneumothorax or effusion is seen. Lung ocasio are grossly clear. Prominent cardiac silhouette. Tortuous versus ectatic arch and descending aorta The hilar regions do not appear pathologically enlarged. No evidence for thoracic compression injury. No displaced fracture is seen. 3 views the lumbar sacral spine compared to previous dated 03/07/2023. Exam demonstrates moderate to marked degenerative changes. Grade 1 anterolisthesis of L5 on S1 may well be degenerative. Scoliosis convex left apex at L4. No evidence for an acute compression injury. No fracture line is seen. Single image of the pelvis does not demonstrate evidence for fracture. Detailed 2 views of the right hip show significant degenerative change with abnormal femoral head contour and sclerosis on both sides of the joint with degenerative cystic formation. No acute fracture or dislocation is seen. XR/XR chest 2V IMPRESSION: Multiple films. No acute bony finding. Significant degeneration and deformity in the right hip. Moderate to marked degeneration in the lumbar sacral spine.. No acute finding in the chest
--- NOTE | ~2023-09-01 | XR_ITS ---
Indication: Fall EXAMINATION: Two-view chest, lumbar sacral spine, right hip. Single view pelvis 2 views of the chest were obtained and there are no films to compare. Findings; No pneumothorax or effusion is seen. Lung ocasio are grossly clear. Prominent cardiac silhouette. Tortuous versus ectatic arch and descending aorta The hilar regions do not appear pathologically enlarged. No evidence for thoracic compression injury. No displaced fracture is seen. 3 views the lumbar sacral spine compared to previous dated 03/07/2023. Exam demonstrates moderate to marked degenerative changes. Grade 1 anterolisthesis of L5 on S1 may well be degenerative. Scoliosis convex left apex at L4. No evidence for an acute compression injury. No fracture line is seen. Single image of the pelvis does not demonstrate evidence for fracture. Detailed 2 views of the right hip show significant degenerative change with abnormal femoral head contour and sclerosis on both sides of the joint with degenerative cystic formation. No acute fracture or dislocation is seen. XR/XR hip RT w PEL1V IMPRESSION: Multiple films. No acute bony finding. Significant degeneration and deformity in the right hip. Moderate to marked degeneration in the lumbar sacral spine.. No acute finding in the chest
--- NOTE | ~2023-09-01 | XR_ITS ---
Indication: Fall EXAMINATION: Two-view chest, lumbar sacral spine, right hip. Single view pelvis 2 views of the chest were obtained and there are no films to compare. Findings; No pneumothorax or effusion is seen. Lung ocasio are grossly clear. Prominent cardiac silhouette. Tortuous versus ectatic arch and descending aorta The hilar regions do not appear pathologically enlarged. No evidence for thoracic compression injury. No displaced fracture is seen. 3 views the lumbar sacral spine compared to previous dated 03/07/2023. Exam demonstrates moderate to marked degenerative changes. Grade 1 anterolisthesis of L5 on S1 may well be degenerative. Scoliosis convex left apex at L4. No evidence for an acute compression injury. No fracture line is seen. Single image of the pelvis does not demonstrate evidence for fracture. Detailed 2 views of the right hip show significant degenerative change with abnormal femoral head contour and sclerosis on both sides of the joint with degenerative cystic formation. No acute fracture or dislocation is seen. XR/XR lumbar spine 2-3V IMPRESSION: Multiple films. No acute bony finding. Significant degeneration and deformity in the right hip. Moderate to marked degeneration in the lumbar sacral spine.. No acute finding in the chest
--- NOTE | 2023-09-01 11:45 | ED_ITS ---
HPI - General Adult General Chief complaint: Fall Stated complaint: LOWER BACK PAIN Time Seen by Provider: 09/01/23 11:45 Source: patient, family (patient's daughter and granddaughter) and EMS Mode of arrival: EMS Limitations: no limitations History of Present Illness HPI narrative: Patient is an 88 year old assigned female at with a history of atrial fib on coumadin, osteoarthritis of the knees and hips, and chronic low back pain / sciatic nerve pain presenting to the emergency department today with weakness, a cough, and worsening low back pain. Patient states that her right sciatica is acting up and causing her pain. Patient's daughter states that the patient has been weak and has had a cough for the last week since returning from [place]. Patient denies any dizziness, lightheadedness, abdominal pain, nausea, vomiting, fever, chills, blurry vision, double vision, loss of vision, chest pain, difficulty breathing, shortness of breath, night sweats, pain with urination, increased urinary frequency, increased urinary urgency, blood in her urine or stool, syncope or a near syncopal episode, recent trauma or falls, bowel incontinence, bladder incontinence, bowel retention, bladder retention, or any other complaints at this time. Onset (ago): week(s) Location: back Radiation: extremity Severity: mild Severity scale (1-10): 4 Quality: aching Pain Consistency: constant Relieving factors: immobilization Exacerbating factors: movement Associated symptoms: cough and weakness Treatments prior to arrival: none Related Data Previous Rx's Medication Instructions Recorded apixaban 5 mg tablet (Eliquis) 5 mg PO BID 90 days #180 tabs 05/28/23 metoprolol succinate 50 mg 50 mg PO DAILY #90 tabs 05/28/23 tablet,extended release 24 hr (Toprol XL) gabapentin 300 mg capsule 300 mg PO BEDTIME #30 caps 07/09/23 levothyroxine 25 mcg tablet 25 mcg PO DAILY #90 tabs 08/17/23 Allergies Allergy/AdvReac Type Severity Reaction Status Date / Time No Known Allergies Allergy Verified 09/01/23 11:49 Review of Systems 2 Constitutional: Constitutional: Reports no additional constitutional complaints, Denies chills, Denies fever(s), Denies night sweats and Reports weakness Eyes: Eyes: Reports no additional eye complaints, Denies blurry vision, Denies change in vision, Denies diplopia, Denies eye discharge, Denies loss of vision and Denies eye pain ENT: Denies dizziness Cardiovascular: Cardiovascular: Reports no additional cardiovascular complaints, Denies chest pain, Denies lightheadedness, Denies Loss of Consciousness and Denies dyspnea Respiratory: Respiratory: Reports no additional respiratory complaints, Reports cough and Denies dyspnea Gastrointestinal: Gastrointestinal: Reports no additional gastrointestinal complaints, Denies abdominal pain, Denies melena, Denies hematochezia, Denies change in bowel habits and Denies change in stool character Genitourinary: Genitourinary: Denies hematuria, Denies urinary frequency, Denies dysuria, Denies urinary incontinence, Denies urinary hesitancy and Denies urinary urgency Musculoskeletal: Musculoskeletal: Reports no additional musculoskeletal complaints, Reports back pain, Denies numbness and Denies tingling Neurologic: Denies dizziness, Denies loss of vision, Denies numbness, Denies tingling and Reports weakness Psychiatric: Psychiatric: Reports no additional psychiatric complaints Endocrine: Endocrine: Reports no additional endocrine complaints Hematologic/Lymphatic: Hematologic/Lymphatic: Reports no additional hematologic/lymphatic complaints Allergic/Immunologic: Allergic/Immunologic: Reports no additional allergic/immunologic complaints [facility] Past Medical History Attestation statement: The following information was validated with the patient. 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 LFT elevation Elevated TSH Irregular heart rate Osteoarthritis of right knee Arthritis Social History Social History Housing: House Patient Tobacco Use Status: Former Tobacco user Smoked in Last 30 Days: No e-Cigarette/Vaping Use: Never Used Use of substances other than those prescribed or required for medical reasons: No Advance Directives: No Advance Directives Information Provided: No service: No Current occupational status: retired Current occupation: right handed Cognitive needs: No Hearing needs: No Vision needs: No Physical Exam ED Vital Signs: Vital Signs - 24 hr 09/01/23 11:46 09/01/23 14:32 09/01/23 16:24 Temperature 98 F Pulse Rate 105 H 103 H 108 H Respiratory Rate 16 16 20 Blood Pressure 125/66 123/68 118/65 Pulse Oximetry 95 92 94 Oxygen Delivery Method Room Air Room Air Room Air BMI result Body Mass Index 32.1 Const General: cooperative, no acute distress, alert and awake Nutritional Appearance: well nourished Orientation/consciousness: patient oriented x3 Limitations: no limitations HENMT Head: Yes normal to inspection and Yes atraumatic Ears: hearing grossly normal bilaterally and external ears normal General nose exam: Normal external nose present, no nasal discharge noted and no epistaxis Face and sinus: Yes normal facial exam, No abrasion and No laceration Mouth: Normal oral and palatal mucosa present, no drooling and no muffled voice Eyes General: appearance normal, both eyes and all related structures Periorbital: periorbital findings normal Eyelids: Yes eyelids normal Conjunctivae: conjunctivae normal Pupils: Equal, round and reactive pupils present EOM: EOMs intact bilaterally Neck Neck: Yes normal visual inspection, Yes full ROM and Yes no lymphadenopathy Chest Chest palpation & inspection: normal inspection of the chest Resp Effort & Inspection: normal respiratory effort and able to speak in complete sentences GI Inspection: Yes normal to inspection General: Yes no CVA tenderness Back/Spine/Pelvis Other: pain with low back ROM Back: no CVA tenderness Cervical Spine: normal cervical lordosis and cervical ROM normal Thoracic/Lumbar Spine: thoracic and lumbar spine normal to inspection and thoraco-lumbar ROM normal Neuro General: patient oriented x3 and moves all extremities Cranial nerves: Yes Equal, round and reactive pupils present Cognition (Neuro): normal cognition Motor exam (neuro): 5/5 motor strength present throughout Sensory Exam: Normal double simultaneous stimulation for sensation Coordination: [id number] test normal Extrem General: Yes normal to inspection, Yes full ROM and Yes capillary refill normal Psych Appearance: grossly normal Mental Status: mental status grossly normal Affect: normal affect Attitude: cooperative Thought process: Normal thought process present Thought content: Normal thought content present Insight: Good insight present (Psych) Course Course Course Narrative: Patient received in sign-out from HERBIE Baker pending x-ray results. No acute bony findings or acute abnormalities on chest x-ray. Patient able to maintain oxygen saturation while ambulating. Will place PT/CM consults as daughter feels patient is unsafe to return home. Patient placed on physician observation pending PT/CM. Medications Administered Discontinued Medications Generic Name Dose Route Start Last Admin Trade Name Zion PRN Reason Stop Dose Admin Sodium Chloride 1,000 mls @ 999 mls/hr 09/01/23 15:15 09/01/23 16:11 Ns IV 09/01/23 16:15 999 mls/hr .Q1H1M MONALISA Administration Ondansetron HCl 4 mg 09/01/23 14:39 09/01/23 14:50 Ondansetron Hcl 4 Mg/2 Ml Vial IVPUSH 09/01/23 14:40 4 mg ONCE ONE Administration Oxycodone HCl 5 mg 09/01/23 11:49 09/01/23 11:54 Oxycodone Hcl Immed Release 5 Mg Tablet PO 09/01/23 11:50 5 mg ONCE ONE Administration Medical Decision Making Medical Decision Making [facility] Narrative: Patient is an 88 year old assigned female at with a history of atrial fib and back pain presenting to the emergency department today with weakness, cough, and back pain. Patient's physical exam was unremarkable. Patient's blood work was unremarkable. Patient's urine is pending. Patient's EKG was unremarkable. Patient's chest, hip, and lumbar x-rays are pending. Patient's flu test is positive. I explained my physical exam findings as well as all test results to the patient, the patient's daughter, and the patient's grandddaughter. I answered all questions asked by the patient, the patient's daughter, and the patient's granddaughter. Patient signed out to Giselle NURSE ADVISOR pending XR results. Differential Diagnosis Differential Diagnoses: The differential diagnosis associated with the presentation includes Cough Influenza Weakness Back pain Admission/Observation Consideration of admission/observation: Escalation of care including admission/observation considered Patient would have been admitted to the hospital had her work up had any findings where hospital admission was appropriate and her clinical presentation warranted hospital admission. Lab Data [facility] Lab Attestation statement: I reviewed the patient's lab results. My interpretation of these results are in the [facility] Rationale portion of this note. 09/01/23 14:45 09/01/23 14:45 Labs: Lab Results 09/01/23 Range/Units 14:45 WBC 8.1 (4.8-10.8) X10*3/uL RBC 3.98 L (4.20-5.50) X10*6/uL Hgb 12.8 (12.0-16.0) g/dl Hct 37.2 (37.0-47.0) % MCV 93.5 (80.0-98.0) fL MCH 32.2 (27.0-33.0) pg MCHC 34.4 (31.0-35.0) g/dl RDW 12.9 (11.0-16.0) % Plt Count 196 D (160-400) X10*3/uL MPV 10.1 (9.4-12.3) fL Immature Gran % (Auto) 0.4 (0.0-0.4) % Neut % (Auto) 79.0 H (45-73) % Lymph % (Auto) 8.4 L (20-40) % [place] % (Auto) 12.0 H (2-11) % Eos % (Auto) 0.0 (0-4) % Baso % (Auto) 0.2 (0-2) % Lymph # (Auto) 0.7 L (1.2-4.9) X10*3/uL [place] # (Auto) 1.0 (0.1-1.2) X10*3/uL Eos # (Auto) 0.0 (0.0-0.4) X10*3/uL Baso # (Auto) 0.0 (0.0-0.2) X10*3/uL Abs Immat Gran (auto) 0.03 (0.00-0.03) X10*3/uL Absolute Neuts (auto) 6.4 (2.0-8.3) x10*3/uL Absolute Nucleated RBC 0.000 (0.0-0.012) X10*3/uL Nucleated RBC % (auto) 0.0 (0.0-0.2) /100WBC PT 23.5 H D (11.1-13.3) SEC INR 1.9 H (0.9-1.1) APTT 36.7 H (26.0-36.4) SEC Sodium 134 L (135-145) mmol/L Potassium 3.8 (3.3-5.1) mmol/L Chloride 103 (96-108) mmol/L Carbon Dioxide 23 (22-29) mmol/L Anion Gap 12 (12-20) BUN 15 (9-16) mg/dL Creatinine 0.72 (0.5-1.4) mg/dL Estim Creat Clear Calc 51.7 Estimated GFR > 60 Random Glucose 123 H (60-115) mg/dL Calcium 8.4 D (8.4-10.2) mg/dL Magnesium 2.0 (1.6-2.6) mg/dL Total Bilirubin 0.8 (0.0-1.0) mg/dL AST 30 (5-31) U/L ALT 14 (0-31) U/L Alkaline Phosphatase 113 (39-117) U/L Troponin I High Sens 11.8 (<3.5-17.0) ng/L Total Protein 6.4 L (6.5-8.0) g/dL Albumin 3.6 (3.5-5.0) g/dL Influenza Type A (PCR) POSITIVE A (Negative) Influenza Type B (PCR) NEGATIVE (Negative) RSV RNA Qual (PCR) NEGATIVE (Negative) SARS-CoV-2 RNA (RT-PCR) NEGATIVE (Negative) Independent Interpretation I performed an independent interpretation of an: EKG Interpretation: Vent. Rate: 103 BPM Atrial Rate: 000 BPM P-R Int: 000 ms QRS Dur: 084 ms QT Int: 348 ms P-R-T Axes: 000 -31 -26 degrees QTc Int: 455 ms Atrial fibrillation with rapid ventricular response Left axis deviation Nonspecific ST and T wave abnormality Abnormal ECG No previous ECGs available DD/ 1456 Independent Historian Clinical information obtained from an independent historian. History obtained from or confirmed by: EMS (EMS provided additional history and confirmed the history provided by the patient.) and Other (patient's daughter and granddaughter provided additional history and confirmed the history provided by the patient.) Discharge Plan Discharge Clinical Impression: Influenza Patient Disposition: Still a Patient Prescriptions: No Action gabapentin 300 mg capsule 300 mg PO BEDTIME Qty: 30 0RF levothyroxine 25 mcg tablet 25 mcg PO DAILY Qty: 90 0RF Rx Instructions: Take it on empty stomach metoprolol succinate [Toprol XL] 50 mg tablet extended release 24 hr 50 mg PO DAILY Qty: 90 3RF Eliquis 5 mg tablet 5 mg PO BID 90 Days Qty: 180 3RF
[2023-09-01 11:46] VITALS: BP 125/66; BP 140/98; PULSE 105; PULSE 89; RESP 16; TEMP 36.6; O2SAT 95; O2SAT 97; BMI 32.1
[2023-09-01] MEDS: oxyCODONE HCl Immed Release 5 MG TABLET PO (11:54)
--- NOTE | 2023-09-01 14:22 | ECG_ITS ---
Test Reason : WEAKNESS Blood Pressure : / mmHG Vent. Rate : 103 BPM Atrial Rate : 000 BPM P-R Int : 000 ms QRS Dur : 084 ms QT Int : 348 ms P-R-T Axes : 000 -31 -26 degrees QTc Int : 455 ms Atrial fibrillation with rapid ventricular response Left axis deviation RSR' or QR pattern in V1 suggests right ventricular conduction delay Nonspecific ST and T wave abnormality Abnormal ECG No previous ECGs available Referred By: Olivia Vivas Electronically Signed By:LULI FU MD
[2023-09-01 14:32] VITALS: BP 123/68; PULSE 103; RESP 16; O2SAT 92
[2023-09-01] MEDS: ondansetron HCL 4 MG/2 ML VIAL IVPUSH (14:50)
[2023-09-01 14:56] LABS: MANUAL DIFF FLAG NO
[2023-09-01 14:58] LABS: Basophils Percent Auto 0.2 % (0-2); Hematocrit 37.2 % (37.0-47.0); Hemoglobin 12.8 g/dl (12.0-16.0); Imm Gran Abs Auto 0.03 X10*3/uL (0.00-0.03); Imm Gran Pct Auto 0.4 % (0.0-0.4); Lymphocytes Absolute Auto 0.7 X10*3/uL (1.2-4.9); Lymphocytes Percent Auto 8.4 % (20-40); Mean Corpuscular HGB Conc 34.4 g/dl (31.0-35.0); Mean Corpuscular Hemoglobin 32.2 pg (27.0-33.0); Mean Corpuscular Volume 93.5 fL (80.0-98.0); Mean Platelet Volume 10.1 fL (9.4-12.3); Neutrophils Absolute Auto 6.4 x10*3/uL (2.0-8.3); Platelet Count 196 X10*3/uL (160-400); Red Blood Count 3.98 X10*6/uL (4.20-5.50); Red Cell Distribution Width 12.9 % (11.0-16.0); White Blood Count 8.1 X10*3/uL (4.8-10.8)
[2023-09-01 15:06] LABS: INTERNATIONAL NORM RATIO 1.9 (0.9-1.1); Prothrombin Time 23.5 SEC (11.1-13.3)
[2023-09-01 15:08] LABS: Partial Thromboplastin Time 36.7 SEC (26.0-36.4)
[2023-09-01 15:10] LABS: Alanine Aminotransferase 14 U/L (0-31); Albumin Level 3.6 g/dL (3.5-5.0); Alkaline Phosphatase 113 U/L (39-117); Anion Gap 12 (12-20); Aspartate Amino Transferase 30 U/L (5-31); Bilirubin Total 0.8 mg/dL (0.0-1.0); Blood Urea Nitrogen 15 mg/dL (9-16); Calcium 8.4 mg/dL (8.4-10.2); Carbon Dioxide 23 mmol/L (22-29); Chloride 103 mmol/L (96-108); Creatinine Clr Calc Pharmacy 51.7; Estimated Glomerular Filt Rate > 60; Glucose Random 123 mg/dL (60-115); Potassium 3.8 mmol/L (3.3-5.1); Sodium 134 mmol/L (135-145); Total Protein 6.4 g/dL (6.5-8.0)
[2023-09-01 15:17] LABS: Troponin-I High Sensitivity 11.8 ng/L (<3.5-17.0)
[2023-09-01 15:45] LABS: Influenza A PCR POSITIVE (Negative); Influenza B PCR NEGATIVE (Negative); Resp Syncy Virus RNA Qual PCR NEGATIVE (Negative); SARS COV2 PCR INHOUSE NEGATIVE (Negative)
[2023-09-01] MEDS: 0.9 % Sodium Chloride 1,000 ML 999 ML IV (16:11)
[2023-09-01 16:24] VITALS: BP 118/65; PULSE 108; RESP 20; O2SAT 94
--- NOTE | 2023-09-01 17:30 | PC.NURSE ---
TRIALED AMBULATION, PT REMAINED AT 94% ON RA THROUGHOUT, HR IN 115S IN AFIB. GAIT IS AT BASELINE PER DAUGHTER AT BEDSIDE. PT USED WALKER WITH SOME ASSISTANCE GETTING IN AND OUT OF BED.
[2023-09-01 18:38] VITALS: BP 108/57; PULSE 105; RESP 20; O2SAT 94
--- NOTE | 2023-09-01 19:55 | PC.NURSE ---
care assumed of patient at this time; pt in no apparent distress; pt to go to overflow unit, rpt given to that RN.
[2023-09-01 20:22] VITALS: BP 134/66; PULSE 105; RESP 18; TEMP 37; O2SAT 95
--- NOTE | 2023-09-01 20:23 | MHC.EDTECH ---
Patient put on a purwick
--- NOTE | 2023-09-01 20:31 | PC.NURSE ---
Patient arrived from main ED to overflow room 6 at 20:00. Per report pt here for fall from which granddaughter caught her mid-fall, found to be Flu+. Pt in private room with precautions in place. A&Ox4. VSS on arrival. Pt denies acute complaints and is in no observed distress. Camera in room for high falls risks. Meds mec done previously per chart review; notified for evening meds orders. Will continue to monitor for remainder of creative services writer's care.
[2023-09-01] MEDS: Metoprolol Succinate ER 50 MG TAB.ER.24H PO (21:25)
[2023-09-01] MEDS: Apixaban 5 MG TABLET PO (21:26)
--- NOTE | 2023-09-01 23:18 | PC.NURSE ---
Handoff report given 23:00 to oncoming RN.
--- NOTE | 2023-09-02 01:14 | PC.NURSE ---
Pt awake requesting assistance with toileting. Commode placed at bedside. [facility]
--- NOTE | 2023-09-02 02:13 | PC.NURSE ---
Pt sleeping at the bedside in no apparent distress. Breaths are even regular and unlabored with equal chest rises. Video monitoring in place. Bed alarm is on. Monitoring ongoing.
--- NOTE | 2023-09-02 04:22 | PC.NURSE ---
Assistance provided to the commode. Unable to collect urine sample at this time as it was contaminated with feces. IV site noted to have dried blood. Dressing removed, cleaned, and new dressing applied. IV line flushed with no difficulty.
[2023-09-02 05:14] VITALS: BP 140/71; PULSE 89; RESP 20; TEMP 36.6; O2SAT 93
[2023-09-02] MEDS: Levothyroxine Sodium 25 MCG TABLET PO (06:31)
[2023-09-02] MEDS: Apixaban 5 MG TABLET PO ×2 (08:42→20:15)
[2023-09-02] MEDS: Metoprolol Succinate ER 50 MG TAB.ER.24H PO (08:42)
--- NOTE | 2023-09-02 10:39 | PHA.MEDREC ---
Pharmacy Consult ? Medication Reconciliation Pharmacy has completed the medication reconciliation. Reviewed med rec done by nursing
[2023-09-02 14:00] VITALS: BP 138/70; PULSE 94; RESP 20; TEMP 36.4; O2SAT 100
--- NOTE | 2023-09-02 14:00 | MHC.CM.PN ---
EMR REVIEWED, PT W/WORSENING LBP AND SCIATICA, CM MET W/PT AND DTR GWYN WHO REPORTED SHE WOULD LIKE PT TO REMAIN IN [facility] OVER NIGHT FOR FORMAL P.T. EVAL, PT LIVES W/DTR GWYN, USES A CANE/WALKER AND HAS A WC FOR LONG DISTANCES, PCP KARTIK KATZ, LULY PT WILL DC HOME W/HOME PT TOMORROW 09/03, CM DID OFFER TO SEND VNA/PT IF PT WANTED TO DC TODAY HOWEVER SHE WANTS PT TO STAY FOR FORMAL EVAL. REFERRAL PLACED TO [facility], NO PREFERRED VNA.
[2023-09-02 14:25] LABS: Appearance Urine Clear; Color Urine Yellow; Glucose Urine UA Negative (Negative); Leukocyte Esterase Urine Small (1+) (Negative); Nitrite Urine Negative (Negative); PH 5.5 (5.0-9.0); UMIC TRIGGER UACC YES; Urine Blood Moderate (2+) (Negative); Urine Ketones Negative (Negative); Urine Protein Negative (Neg-Trace)
[2023-09-02 14:30] LABS: Bacteria Urine None Seen (None Seen); Hyaline Casts Urine 0-2 /LPF (0-2); Squamous Epithelial Cell Urine 0-2 /HPF (0-2); UACC Culture Trigger YES
--- NOTE | 2023-09-02 18:53 | PC.NURSE ---
Patient's IV was bleeding, patient c/o discomfort - IV removed
--- NOTE | 2023-09-02 20:17 | PC.NURSE ---
Pt medicated as scheduled. Pt tolerated well.
[2023-09-02 21:54] VITALS: BP 109/55; PULSE 102; RESP 19; TEMP 36.2; O2SAT 94
[2023-09-03 06:00] VITALS: BP 128/74; PULSE 94; RESP 20; TEMP 36.7; O2SAT 96
[2023-09-03] MEDS: Levothyroxine Sodium 25 MCG TABLET PO (06:07)
[2023-09-03] MEDS: Metoprolol Succinate ER 50 MG TAB.ER.24H PO (09:48)
[2023-09-03] MEDS: Apixaban 5 MG TABLET PO (09:48)
--- NOTE | 2023-09-03 11:40 | MHC.CM.ED ---
Patient remains in ER overflow. Physical therapy eval completed. Home services are recommended. Met with patient and daughter, Gisella, in regards to discharge planning. Both are agreeable to going home with Isabella PADILLA. Rene MACIAS and Liya STONER aware. Continue to monitor for d/c needs.
== END 2023-09-03 12:15 | disposition home or self-care (01) ==
PROVIDERS: Physician Assistant Medical; Emergency Provider Emergency Medicine Emergency Medical Services
DX: J10.1 Influenza due to other identified influenza virus with other respiratory manifestations (principal); Z91.81 History of falling; Z11.52 Encounter for screening for COVID-19; R53.1 Weakness; M54.50 Low back pain, unspecified; I48.91 Unspecified atrial fibrillation; R73.03 Prediabetes; Z87.891 Personal history of nicotine dependence; Z79.01 Long term (current) use of anticoagulants; Z79.899 Other long term (current) drug therapy
CPT/HCPCS: 0241U; 36415; 71046; 72100; 73502; 80053; 81001; 83735; 84484; 85025; 85610; 85730; 87086; 93005; 96361; 96374; 97161; 99285; J2405

== ENCOUNTER 2023-10-04 08:23 | Outpatient (AMB) | payer MEDICARE, SELFPAY ==
--- NOTE | 2023-10-04 08:27 | MHC.OFFVIS ---
Intake Intake Visit Reasons: Right Knee Durolane Intake Note: Kelli is an 88 year old female who presnets today for a right knee durolane injection Allergies No Known Allergies Allergy (Verified 09/01/23 11:49) HPI Right Knee Durolane HPI Details Kelli is an 88 year old woman with right knee OA, who presents for a Durolane injection. 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 LFT elevation Elevated TSH Irregular heart rate Osteoarthritis of right knee Arthritis Social History Housing: House Patient Tobacco Use Status: Former Tobacco user e-Cigarette/Vaping Use: Never Used service: No Current occupational status: retired Current occupation: right handed Cognitive needs: No Hearing needs: No Vision needs: No Review of Systems Const All systems reviewed & are unremarkable except as noted in HPI and below Physical Exam Const General: no acute distress, alert and awake Orientation/consciousness: patient oriented x3 HEENT Head: Yes normocephalic and Yes atraumatic Eyes EOM: EOMs intact bilaterally Resp Effort & Inspection: normal respiratory effort and able to speak in complete sentences Cardio Jugular venous distension: no JVD Skin General skin exam: turgor normal Rashes: no rashes Neuro General: patient oriented x3 Extrem Other: skin c/d/i No effusion Psych Appearance: grossly normal Affect: normal affect Attitude: cooperative Office Procedures Joint Injection/Drain Joint Injection/Drain Details: Injected Durolane. Site was prepped using aseptic technique. Patient tolerated the procedure well. Primary Site: right knee Approach Used: anterolateral Coding - Large joint Procedure code (CPT) selection complete Assessment & Plan Assessment & Plan (1) Osteoarthritis of knees, bilateral: Code(s): M17.0 - Bilateral primary osteoarthritis of knee Plan: Durolane injection right knee. Plan Scribed for Say Hare MD by Nick Romero, medical research assistant, on 10/04/23 at 8:45 AM, EST. Coding Level of Care Code Est Pt Level 2 (37142) Diagnoses Osteoarthritis of knees, bilateral M17.0 CPT Codes Coding - Large joint: 86471 - Large joint ([id number])
== END 2023-10-04 09:43 | disposition home or self-care (01) ==
PROVIDERS: PCP Internal Medicine; Visit Provider Orthopaedic Surgery
DX: M17.0 Bilateral primary osteoarthritis of knee (principal)
CPT/HCPCS: 20610

== ENCOUNTER → 2023-10-04 08:23 | Outpatient (BNVA) | payer MEDICARE, SELFPAY | PROVIDERS: PCP Internal Medicine; Visit Provider Orthopaedic Surgery | DX: M17.0 Bilateral primary osteoarthritis of knee (principal) | CPT/HCPCS: 20610; J7318 ==

== ENCOUNTER 2024-01-01 11:58 | Outpatient (AMB) | payer MEDICARE, SELFPAY ==
--- NOTE | 2024-01-01 12:04 | MHC.PC.OV ---
Vital Signs 01/01/24 12:07 Height 5 ft 1 in Weight 197 lb 2 oz BMI 37.2 BP 110/58 L Blood Pressure Location Lt brachial Position Sitting Pulse 89 Pulse Source Pulse Oximeter Pulse Oximetry (%) 95 Oxygen Delivery Method Room Air Intake Visit Reasons: Follow Up~ Allergies No Known Allergies Allergy (Verified 01/01/24 12:04) Medication List - Last Reconciled 01/01/24 by Nico Royal MD apixaban (Eliquis) 5 mg PO BID 90 days gabapentin 300 mg PO BEDTIME levothyroxine 25 mcg PO DAILY metoprolol succinate ER (Toprol XL) 50 mg PO DAILY Tobacco use date assessed: 01/01/24 Fall risk assessment: No Falls in past year Last assessed Fall Risk: 01/01/24 Dental Screening Dental Screen Date: 01/01/24 Did you have a dental visit in the last 12 months?: No Did you have a dental problem in the last 6 months where you did not have access to dental care?: No Was dental information given to patient?: No HPI Follow Up~ HPI Details Patient is 88-year-old female came in regular follow-up appointment 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 We also talked about possibility of constipation She has appointment coming up with cardiology next month for atrial fibrillation Currently patient is on metoprolol and Eliquis Last time she had labs her sodium was low We will be repeating labs again today Telemedicine visit in 2 weeks to follow-up on tramadol. [facility] Medical History Medicare annual wellness visit, subsequent Encounter for anticoagulation discussion and counseling Risk for falls Difficulty walking 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 1. Little interest or pleasure in doing things: not at all 2. Feeling down, depressed, or hopeless: not at all 3. Trouble falling or staying asleep, or sleeping too much: not at all 4. Feeling tired or having little energy: not at all 5. Poor appetite or overeating: not at all 6. Feeling bad about yourself - or that you are a failure or have let yourself or your family down: not at all 7. Trouble concentrating on things, such as reading the newspaper or watching television: not at all 8. Moving or speaking so slowly that other people could have noticed. Or the opposite - being so fidgety or restless that you have been moving around a lot more than usual: not at all 9. Thoughts that you would be better off or of hurting yourself in some way: not at all Total score: 0 Depression Screening Interpretation: Negative Depression Screening Done: Yes 69106 - PHQ-9 Billing: Yes Source: Developed by Drs. Adonis Sandra, Aline Payne, Venu Segal and colleagues, with an educational stephenie from [employer]. Thrive Questionnaire Date Thrive assessed: 01/01/24 I am a: Patient What is your living situation today?: I have a steady place to live Within the past 12 months, did the food you bought not last and you didn't have the money to get more?: Never true Within the past 12 months, did you worry whether your food would run out before you got money to buy more?: Never true Do you have trouble paying for medicines?: No Do you have trouble getting transportation to medical appointments?: No Do you have trouble paying your heating and electricity bill?: No Do you have trouble taking care of your child, family member or friend?: No Do you have trouble with day-to-day activities such as bathing, preparing meals, shopping, managing finances, etc.?: No Are you currently unemployed and looking for a job?: No Are you interested in more education?: No Please select the resources that you would like help with: None Currently or been in a relationship where the following occur: no concerns reported THRIVE Score: 0 AUDIT C Alcohol Use Questionnaire (AUDIT-C) 1. How often do you have a drink containing alcohol?: Never 3. How often do you have six or more drinks on one occasion?: Never Total Score: 0 Score Reviewed/Action Taken: Yes RADHA-7 AMB Questionnaire RADHA-7 Date RADHA - 7 assessed: 01/01/24 Feeling nervous, anxious, or on edge: 1 = Several days Not being able to stop or control worryin = Several days Worrying too much about different things: 1 = Several days Trouble relaxin = Several days Being so restless that it is hard to sit still: 0 = Not at all Becoming easily annoyed or irritable: 0 = Not at all Feeling afraid as if something awful might happen: 0 = Not at all Total RADHA-7 score (0-4 normal; 5-9 mild; 10-14 moderate; 15-21 severe): 4 Source: Developed by Drs. Adonis Sandra, Aline Payne, Venu Segal and colleagues, with an educational stephenie from [employer]. RADHA-7 Assessment Billing RADHA-7 Assessment Tool: RADHA-7 Assessment 49301 Review of Systems Const Denies chills and Denies fever(s) ENT Denies epistaxis and Denies nasal discharge Card Denies chest pain Resp Denies chest congestion, Denies cough and Denies hemoptysis GI Denies diarrhea and Denies nausea Skin/Breast Denies rash Neuro Reports no additional complaints Psych Reports no additional complaints Endo Reports no additional complaints Physical exam (Primary Care) Vital Signs: Last Vital Signs Pulse 89 01/01/24 12:07 BP 110/58 L 01/01/24 12:07 Pulse Ox 95 01/01/24 12:07 Oxygen Delivery Method Room Air 01/01/24 12:07 BMI result Body Mass Index 37.2 Tobacco/Smoking Status: Tobacco use Status Tobacco use date assessed 01/01/24 01/01/24 12:07 Patient Tobacco Use Status Former Tobacco user 01/01/24 12:07 e-Cigarette/Vaping Use Never Used 01/01/24 12:07 PHQ-9: PHQ-9 Score PHQ-9: Total score 0 01/01/24 12:28 Depression Screening Interpretation: Negative Thrive Assessment: Date of Thrive Assessment Date Thrive assessed 01/01/24 01/01/24 12:11 Currently or been in a relationship where the following occur: no concerns reported Const General: cooperative, comfortable and no acute distress Orientation/consciousness: patient oriented x3 HENMT Head: Yes normocephalic Eyes General: appearance normal, both eyes and all related structures Neck Neck: Yes supple Resp Effort & Inspection: normal respiratory effort, no cough and no stridor Cardio Other: Irregularly irregular Heart sounds: S1 normal heart sound present and S2 normal heart sound present Skin General skin exam: turgor normal Neuro Other: Walker dependent General: patient oriented x3, tone normal and moves all extremities Assessment and Plan Assessment & Plan (1) Atrial fibrillation: Code(s): I48.91 - Unspecified atrial fibrillation Qualifiers: Atrial fibrillation type: longstanding persistent Qualified Code(s): I48.11 - Longstanding persistent atrial fibrillation (2) Pre-diabetes: Code(s): R73.03 - Prediabetes (3) Osteoarthritis, hip, bilateral: Code(s): M16.0 - Bilateral primary osteoarthritis of hip Qualifiers: Osteoarthritis type: primary Qualified Code(s): M16.0 - Bilateral primary osteoarthritis of hip (4) Osteoarthritis of knees, bilateral: Code(s): M17.0 - Bilateral primary osteoarthritis of knee Qualifiers: Osteoarthritis type: primary Qualified Code(s): M17.0 - Bilateral primary osteoarthritis of knee (5) Other specified hypothyroidism: Code(s): E03.8 - Other specified hypothyroidism (6) 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: Code(s): Z92.29 - Personal history of other drug therapy (7) Difficulty walking: Code(s): R26.2 - Difficulty in walking, not elsewhere classified (8) Risk for falls: Code(s): Z91.81 - History of falling (9) 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: Code(s): Z99.89 - Dependence on other enabling machines and devices Plan Patient is 88-year-old female came in regular follow-up appointment 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 We also talked about possibility of constipation She has appointment coming up with cardiology next month for atrial fibrillation Currently patient is on metoprolol and Eliquis Last time she had labs her sodium was low We will be repeating labs again today Telemedicine visit in 2 weeks to follow-up on tramadol. Orders: Orders Comprehensive Met. Panel Today I48.91 - Unspecified atrial fibrillation, M16.0 - Bilateral primary osteoarthritis of hip, M17.0 - Bilateral primary osteoarthritis of knee, M54.16 - Radiculopathy, lumbar region, R73.03 - Prediabetes TSH reflex Free T4 Today E03.8 - Other specified hypothyroidism, I48.91 - Unspecified atrial fibrillation, M16.0 - Bilateral primary osteoarthritis of hip, M17.0 - Bilateral primary osteoarthritis of knee, M54.16 - Radiculopathy, lumbar region, R73.03 - Prediabetes Medications: New tramadol 50 mg PO DAILY 30 tabs 0RF Coding Level of Care Code Est Pt Level 4 (31087) Diagnoses Longstanding persistent atrial fibrillation I48.11 Atrial fibrillation type: longstanding persistent Pre-diabetes R73.03 Primary osteoarthritis of both hips M16.0 Osteoarthritis type: primary Primary osteoarthritis of both knees M17.0 Osteoarthritis type: primary Other specified hypothyroidism E03.8 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
[2024-01-01 12:07] VITALS: BP 110/58; PULSE 89; O2SAT 95; BMI 37.2
== END 2024-01-01 13:29 | disposition home or self-care (01) ==
PROVIDERS: PCP Internal Medicine; Visit Provider Internal Medicine
DX: I48.11 Longstanding persistent atrial fibrillation (principal); R73.03 Prediabetes; M16.0 Bilateral primary osteoarthritis of hip; M17.0 Bilateral primary osteoarthritis of knee; E03.8 Other specified hypothyroidism; Z92.29 Personal history of other drug therapy; R26.2 Difficulty in walking, not elsewhere classified; Z91.81 History of falling; Z99.89 Dependence on other enabling machines and devices
CPT/HCPCS: 99214

== ENCOUNTER 2024-01-01 12:28 | Outpatient (REF) | payer MEDICARE, SELFPAY ==
[2024-01-01 16:56] LABS: Alanine Aminotransferase 11 U/L (0-31); Albumin Level 3.7 g/dL (3.5-5.0); Alkaline Phosphatase 123 U/L (39-117); Anion Gap 9 (12-20); Aspartate Amino Transferase 19 U/L (5-31); Bilirubin Total 0.6 mg/dL (0.0-1.0); Blood Urea Nitrogen 16 mg/dL (9-16); Carbon Dioxide 27 mmol/L (22-29); Chloride 110 mmol/L (96-108); Estimated Glomerular Filt Rate > 60; Glucose Random 91 mg/dL (60-115); Potassium 3.9 mmol/L (3.3-5.1); Sodium 142 mmol/L (135-145); Total Protein 6.6 g/dL (6.5-8.0)
[2024-01-01 17:13] LABS: TSH reflex Free T4 3.22 uIU/mL (0.32-4.0)
== END 2024-01-01 12:29 | disposition home or self-care (01) ==
LOC: HO.HMGCLDS 12:28
PROVIDERS: PCP Internal Medicine; Visit Provider Internal Medicine
DX: I48.91 Unspecified atrial fibrillation (principal); R73.03 Prediabetes; M16.0 Bilateral primary osteoarthritis of hip; M17.0 Bilateral primary osteoarthritis of knee; M54.16 Radiculopathy, lumbar region; E03.8 Other specified hypothyroidism
CPT/HCPCS: 36415; 80053; 84443

== ENCOUNTER 2024-01-17 08:29 | Outpatient (AMB) | payer MEDICARE, SELFPAY ==
--- NOTE | 2024-01-17 08:37 | A.OFFPC_ITS ---
Intake Visit Reasons: 2 Wk F/u~ [phone] Allergies No Known Allergies Allergy (Verified 01/17/24 08:37) Medication List - Last Reconciled 01/17/24 by Nico Royal MD apixaban (Eliquis) 5 mg PO BID 90 days levothyroxine 25 mcg PO DAILY metoprolol succinate ER (Toprol XL) 50 mg PO DAILY tramadol 50 mg PO DAILY Tobacco use date assessed: 01/17/24 Fall risk assessment: 1 Fall in past year Last assessed Fall Risk: 01/17/24 Dental Screening Dental Screen Date: 01/17/24 Did you have a dental visit in the last 12 months?: No Did you have a dental problem in the last 6 months where you did not have access to dental care?: No Was dental information given to patient?: No HPI 2 Wk F/u~ [phone] HPI Details Patient is 88-year-old female who suffers from multiple joint severe osteoarthritis Patient has difficulty sleeping at night because of pain, she is currently taking Tylenol for pain relief Last visit I prescribed tramadol, patient is very happy she is benefiting from the medication and her pain has improved tremendously. Her quality of life has improved because of the medication, she is tolerating it, there are no side effects no constipation She has started eating more fruits and fiber. She is taking it during afternoon. One a day Medication refill sent for next 3 months 90 tablets We will follow-up in 3 months for refill. [facility] Medical History Medicare annual wellness visit, subsequent Encounter for anticoagulation discussion and counseling Risk for falls Difficulty walking Hx of residential use of blood thinners LFT elevation Elevated TSH Irregular heart rate Osteoarthritis of right knee Arthritis Social History Housing: House Patient Tobacco Use Status: Former Tobacco user e-Cigarette/Vaping Use: Never Used service: No Current occupational status: retired Current occupation: right handed Cognitive needs: No Hearing needs: No Vision needs: No Questionnaire Thrive Questionnaire Date Thrive assessed: 01/01/24 AUDIT C Alcohol Use Questionnaire (AUDIT-C) 1. How often do you have a drink containing alcohol?: Never 3. How often do you have six or more drinks on one occasion?: Never Total Score: 0 Score Reviewed/Action Taken: Yes RADHA-7 AMB Questionnaire RADHA-7 Date RADHA - 7 assessed: 01/01/24 Source: Developed by Drs. Adonis Sandra, Aline Payne, Venu Segal and colleagues, with an educational stephenie from [employer]. Review of Systems Const Denies chills and Denies fever(s) ENT Denies epistaxis and Denies nasal discharge Card Denies chest pain Resp Denies chest congestion, Denies cough and Denies hemoptysis GI Denies diarrhea and Denies nausea Skin/Breast Denies rash Neuro Reports no additional complaints Psych Reports no additional complaints Endo Reports no additional complaints Physical exam (Primary Care) Tobacco/Smoking Status: Tobacco use Status Tobacco use date assessed 01/17/24 01/17/24 08:39 Patient Tobacco Use Status Former Tobacco user 01/17/24 08:39 e-Cigarette/Vaping Use Never Used 01/17/24 08:39 Thrive Assessment: Date of Thrive Assessment Date Thrive assessed 01/01/24 01/17/24 08:39 Telehealth Telehealth Location of provider rendering services: practice address Location of patient: address on file Patient Identification confirmed using: Name, : Yes Telehealth method: voice only Patient verbally consented to treatment: Yes Patient verbally consented to billing insurance company: Yes Patient informed of any privacy concerns related to visit: Yes Minutes spent on Phone/Video with Pt.: 14 Assessment and Plan Assessment & Plan (1) Osteoarthritis, hip, bilateral: Code(s): M16.0 - Bilateral primary osteoarthritis of hip Qualifiers: Osteoarthritis type: primary Qualified Code(s): M16.0 - Bilateral primary osteoarthritis of hip (2) Osteoarthritis of knees, bilateral: Code(s): M17.0 - Bilateral primary osteoarthritis of knee Qualifiers: Osteoarthritis type: primary Qualified Code(s): M17.0 - Bilateral primary osteoarthritis of knee (3) Right lumbar radiculitis: Code(s): M54.16 - Radiculopathy, lumbar region (4) Pain management: Code(s): R52 - Pain, unspecified Plan Patient is 88-year-old female who suffers from multiple joint severe osteoa rthritis Patient has difficulty sleeping at night because of pain, she is currently taking Tylenol for pain relief Last visit I prescribed tramadol, patient is very happy she is benefiting from the medication and her pain has improved tremendously. Her quality of life has improved because of the medication, she is tolerating it, there are no side effects no constipation She has started eating more fruits and fiber. She is taking it during afternoon. One a day Medication refill sent for next 3 months 90 tablets We will follow-up in 3 months for refill. Medications: Changed From tramadol 50 mg PO DAILY 30 tabs 0RF To tramadol 50 mg PO DAILY 90 tabs 0RF 90 days Coding Level of Care Code Tele Est Pt Level 3 (08799) Diagnoses Primary osteoarthritis of both hips M16.0 Osteoarthritis type: primary Primary osteoarthritis of both knees M17.0 Osteoarthritis type: primary Right lumbar radiculitis M54.16 Pain management R52
== END 2024-01-17 15:23 | disposition home or self-care (01) ==
PROVIDERS: PCP Internal Medicine; Visit Provider Internal Medicine
DX: M16.0 Bilateral primary osteoarthritis of hip (principal); M17.0 Bilateral primary osteoarthritis of knee; M54.16 Radiculopathy, lumbar region
CPT/HCPCS: 99442

== ENCOUNTER 2024-01-29 08:09 | Outpatient (AMB) | payer MEDICARE, SELFPAY ==
--- NOTE | 2024-01-29 08:49 | AM.OFFWIN_ITS ---
Intake Vital Signs 01/29/24 08:49 01/29/24 08:57 01/29/24 09:43 Height 5 ft 1 in BMI Reason not done Patient refused/unable BP 136/80 Blood Pressure Location Lt brachial Position Sitting Pulse 114 H 101 H Pulse Source Pulse Oximeter Auscultation Temp 97.6 F Temp Source Temporal Artery Scan Pulse Oximetry (%) 96 Oxygen Delivery Method Room Air Intake Visit Reasons: EP Cold, Congestion Intake Note: pt is here today for cold congestion started 1 week ago Patient Tobacco Use Status: Former Tobacco user Allergies No Known Allergies Allergy (Verified 01/29/24 08:58) Medication List - Last Reconciled 01/29/24 by PEARL Marie apixaban (Eliquis) 5 mg PO BID 90 days levothyroxine 25 mcg PO DAILY metoprolol succinate ER (Toprol XL) 50 mg PO DAILY tramadol 50 mg PO DAILY 90 days Do you need a note to return to daycare/school/sports/work: No HPI HPI Comments History of Present Illness Details Patient is an 88-year-old female in today for a sick visit. Patient has a past medical history significant for AFib and is currently on Eliquis. Patient states that for the past week she has developed upper respiratory symptoms which include bilateral ear pain, sore throat, cough. Patient states that she has reduced appetite, but is able to hold food down. Has not tried any medication for relief. At home COVID test was negative. Patient denies chest pain, shortness a breath, nausea, vomiting, diarrhea, numbness. Patient lives with daughter. 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 LFT elevation Elevated TSH Irregular heart rate Osteoarthritis of right knee Arthritis Social History Housing: House Patient Tobacco Use Status: Former Tobacco user e-Cigarette/Vaping Use: Never Used service: No Current occupational status: retired Current occupation: right handed Cognitive needs: No Hearing needs: No Vision needs: No Review of Systems Const All systems reviewed & are unremarkable except as noted in HPI and below Eyes Denies blurry vision ENT Denies dizziness, Reports otalgia, Reports nasal congestion and Reports sore throat Card Denies chest pain and Denies dyspnea Resp Denies dyspnea GI Denies diarrhea, Denies nausea and Denies vomiting Neuro Denies dizziness Physical Exam Vital Signs: Last Vital Signs Temp 97.6 F 01/29/24 08:57 Pulse 114 H 01/29/24 08:57 BP 136/80 01/29/24 08:57 Pulse Ox 96 01/29/24 08:57 Oxygen Delivery Method Room Air 01/29/24 08:57 Const General: no acute distress Orientation/consciousness: patient oriented x3 HEENT Head: Yes normal to inspection and Yes normocephalic Ears: TM normal on the right and TM abnormal (left TM) erythematous Face and sinus: Yes normal facial exam Throat: Yes posterior oropharynx abnormal and Yes cobblestoning Eyes General: appearance normal, both eyes and all related structures Neck Neck: Yes normal visual inspection and Yes full ROM Resp Effort & Inspection: normal respiratory effort, able to speak in complete sentences and Actively coughing Auscultation: clear to auscultation bilaterally Cardio Rate: tachycardic Rhythm: abnormal rhythm (AFib) GI Inspection: Yes normal to inspection Neuro General: patient oriented x3 Results Reviewed Results Reviewed: Will call patient with x-ray blood test results Assessment & Plan Assessment & Plan (1) Otitis media: Comment: Of the left ear. Will give patient azithromycin. Code(s): H66.90 - Otitis media, unspecified, unspecified ear Qualifiers: Otitis media type: unspecified Chronicity: acute Qualified Code(s): H66.90 - Otitis media, unspecified, unspecified ear Plan: Take your medications as prescribed. If you were prescribed antibiotics today, it is important that you take your medication to their entirety, do not skip any doses, do not finish them early. Follow-up with your primary care provider this week. Return to the emergency department with new or worsening symptoms. Such as fevers, chills, chest pain, shortness of breath, nausea, vomiting, dizziness, headache, vision changes, lethargy In case of emergency call 911 (2) Cough: Comment: Will give patient benzonatate. Will also obtain chest x-ray. Code(s): R05.9 - Cough, unspecified Qualifiers: Cough type: acute Qualified Code(s): R05.1 - Acute cough Plan: Patient has been educated on signs of worsening symptoms when to report back to the walk-in or when to present to the ED. patient's daughter present. Patient has been able to tolerate fluids, and cereal with fruit at home. Plan Follow-up with PCP. Orders: Orders SARS-CoV2/FLU/RSV Today J06.9 - Acute upper respiratory infection, unspecified XR chest 2V Today R06.2 - Wheezing Complete Blood Count Auto Diff Today D72.829 - Elevated white blood cell count, unspecified Comprehensive Met. Panel Today Z91.89 - Other specified personal risk factors, not elsewhere classified Medications: New benzonatate 100 mg PO BID PRN 20 caps 0RF cough azithromycin For 250 mg dose pack: take 500 mg today (day 1), then 250 mg for 4 days (days 2-5) PO 6 tabs 0RF Coding Level of Care Code Est Pt Level 3 (35472) Diagnoses Acute otitis media, unspecified otitis media type H66.90 Otitis media type: unspecified Chronicity: acute Acute cough R05.1 Cough type: acute Time Spent (min) 23
[2024-01-29 08:57] VITALS: BP 136/80; PULSE 114; TEMP 36.4; O2SAT 96
[2024-01-29 09:43] VITALS: PULSE 101
== END 2024-01-29 10:05 | disposition home or self-care (01) ==
PROVIDERS: PCP Internal Medicine; Visit Provider Nurse Practitioner Primary Care
DX: H66.90 Otitis media, unspecified, unspecified ear (principal); R05.1 Acute cough
CPT/HCPCS: 99213

== ENCOUNTER 2024-01-29 09:17 | Outpatient (REF) | payer MEDICARE, SELFPAY ==
--- NOTE | ~2024-01-29 | XR_ITS ---
EXAMINATION: XR CHEST CLINICAL INFORMATION: Wheezing COMPARISON: 09/01/2023 TECHNIQUE: 2 views of the chest were obtained. FINDINGS: Lungs are well expanded. The bronchial duran appear to be diffusely thickened, particularly in lower lobes. No focal consolidation or pleural effusion. Cardiac silhouette is in the normal size range. Pulmonary vascular pattern is normal. Moderate spondylosis of the thoracic spine. XR/XR chest 2V IMPRESSION: The bronchial duran appear to be diffusely thickened, particularly in lower lobes, and this could be a manifestation of asthma or bronchitis.
[2024-01-29 10:35] LABS: Basophils Absolute Auto 0.1 X10*3/uL (0.0-0.2); Basophils Percent Auto 0.5 % (0-2); Eosinophils Percent Auto 0.3 % (0-4); Hematocrit 40.1 % (37.0-47.0); Hemoglobin 13.5 g/dl (12.0-16.0); Imm Gran Abs Auto 0.07 X10*3/uL (0.00-0.03); Imm Gran Pct Auto 0.5 % (0.0-0.4); Lymphocytes Absolute Auto 0.9 X10*3/uL (1.2-4.9); MANUAL DIFF FLAG SCAN; Mean Corpuscular HGB Conc 33.7 g/dl (31.0-35.0); Mean Corpuscular Hemoglobin 31.9 pg (27.0-33.0); Mean Corpuscular Volume 94.8 fL (80.0-98.0); Mean Platelet Volume 10.1 fL (9.4-12.3); Monocytes Absolute Auto 1.7 X10*3/uL (0.1-1.2); Monocytes Percent Auto 13.2 % (2-11); Neutrophils Absolute Auto 10.3 x10*3/uL (2.0-8.3); Neutrophils Percent Auto 78.5 % (45-73); Platelet Count 316 X10*3/uL (160-400); Red Blood Count 4.23 X10*6/uL (4.20-5.50); Red Cell Distribution Width 12.1 % (11.0-16.0); SCAN SMEAR FLAG 1; White Blood Count 13.1 X10*3/uL (4.8-10.8)
[2024-01-29 11:25] LABS: Influenza A PCR NEGATIVE (Negative); Influenza B PCR NEGATIVE (Negative); Resp Syncy Virus RNA Qual PCR NEGATIVE (Negative); SARS COV2 PCR INHOUSE NEGATIVE (Negative)
[2024-01-29 11:29] LABS: SLIDE REVIEW VERIFIED
[2024-01-29 12:06] LABS: Alanine Aminotransferase 27 U/L (0-31); Albumin Level 3.4 g/dL (3.5-5.0); Alkaline Phosphatase 192 U/L (39-117); Anion Gap 15 (12-20); Aspartate Amino Transferase 37 U/L (5-31); Bilirubin Total 1.2 mg/dL (0.0-1.0); Blood Urea Nitrogen 15 mg/dL (9-16); Calcium 8.7 mg/dL (8.4-10.2); Carbon Dioxide 26 mmol/L (22-29); Chloride 100 mmol/L (96-108); Estimated Glomerular Filt Rate > 60; Glucose Random 103 mg/dL (60-115); Potassium 3.5 mmol/L (3.3-5.1); Sodium 137 mmol/L (135-145); Total Protein 6.8 g/dL (6.5-8.0)
== END 2024-01-29 09:18 | disposition home or self-care (01) ==
LOC: HO.HMGCX 09:17
PROVIDERS: PCP Internal Medicine; Visit Provider Nurse Practitioner Primary Care
DX: R06.2 Wheezing (principal); D72.829 Elevated white blood cell count, unspecified; J06.9 Acute upper respiratory infection, unspecified; Z91.89 Other specified personal risk factors, not elsewhere classified
CPT/HCPCS: 0241U; 36415; 71046; 80053; 85025

== ENCOUNTER 2024-02-12 14:17 | Outpatient (AMB) | payer MEDICARE, SELFPAY ==
[2024-02-12 14:25] VITALS: BP 110/52; PULSE 80; BMI 35.5
--- NOTE | 2024-02-12 14:25 | A.OFFVIS_ITS ---
Vital Signs 02/12/24 14:25 Height 5 ft 1 in Weight 188 lb BMI 35.5 BP 110/52 L Blood Pressure Location Lt brachial Position Sitting Pulse 80 Pulse Source Pulse Oximeter Intake Visit Reasons: 6 mth f/up Clinical Safety Specialist Required: No Accompanied by: Daughter Allergies No Known Allergies Allergy (Verified 01/29/24 08:58) Medication List - Last Reconciled 02/12/24 by Yash Garcia MD apixaban (Eliquis) 5 mg PO BID 90 days azithromycin For 250 mg dose pack: take 500 mg today (day 1), then 250 mg for 4 days (days 2-5) PO benzonatate 100 mg PO BID PRN levothyroxine 25 mcg PO DAILY metoprolol succinate ER (Toprol XL) 50 mg PO DAILY prednisone 20 mg PO DAILY tramadol 50 mg PO DAILY 90 days HPI Comments Details: Kelli returns for follow-up regarding atrial fibrillation. Overall, she states she feels fine. No cardiac symptoms whatsoever. Remains on beta-blockers and anticoagulation. 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 LFT elevation Elevated TSH Irregular heart rate Osteoarthritis of right knee Arthritis Social History Housing: House Patient Tobacco Use Status: Former Tobacco user e-Cigarette/Vaping Use: Never Used service: No Current occupational status: retired Current occupation: right handed Cognitive needs: No Hearing needs: No Vision needs: No Review of Systems Const Denies chills, Denies fatigue, Denies fever(s), Denies frequent falls, Denies weakness, Denies weight gain and Denies weight loss ENT Denies dizziness Card Denies chest pain, Denies leg edema, Denies lightheadedness, Denies palpitations, Denies dyspnea and Denies dyspnea on exertion Resp Denies cough, Denies dyspnea and Denies dyspnea on exertion GI Denies hematochezia Musc Denies abnormal gait, Denies muscle weakness, Denies numbness, Denies radiating pain into limb and Denies tingling Neuro Denies abnormal gait, Denies dizziness, Denies frequent falls, Denies numbness, Denies tingling and Denies weakness Endo Denies fatigue and Denies palpitations Physical Exam Vital Signs: Last Vital Signs Pulse 80 02/12/24 14:25 BP 110/52 L 02/12/24 14:25 BMI result Body Mass Index 35.5 Const General: comfortable and no acute distress Orientation/consciousness: patient oriented x3 HEENT Other: Unremarkable Head: Yes normal to inspection Neck Neck: Yes normal visual inspection Chest Chest palpation & inspection: normal inspection of the chest Resp Auscultation: clear to auscultation bilaterally Cardio Palpation: normal PMI Heart sounds: S1 normal heart sound present, S2 normal heart sound present, no gallops, no murmurs and no rubs GI Palpation (GI): Soft to palpation Back/Spine/Pelvis Other: unremarkable Skin General skin exam: no rashes or lesions noted Neuro General: patient oriented x3 Extrem General: Yes normal to inspection Psych Mental Status: mental status grossly normal Assessment & Plan Assessment & Plan (1) Persistent atrial fibrillation: Code(s): I48.19 - Other persistent atrial fibrillation Category: Medical Plan Cardiac studies reviewed. Echocardiogram with LVEF of 55-60%. No wall motion abnormalities and otherwise unremarkable. In the Holter monitor, underlying rhythm is atrial fibrillation with an average rate of 86/Min. Overall, thought to have had adequate rate control. Continue beta-blockers and anticoagulation without changes. We will see her back in 1 year. In the interim, she will call with concerns. Discussed with family. Coding Level of Care Code Est Pt Level 3 (76266) Diagnoses Persistent atrial fibrillation I48.19
== END 2024-02-12 14:51 | disposition home or self-care (01) ==
PROVIDERS: PCP Internal Medicine; Visit Provider Internal Medicine
DX: I48.19 Other persistent atrial fibrillation (principal)
CPT/HCPCS: 99213

== ENCOUNTER → 2024-02-12 14:17 | Outpatient (BNVA) | payer MEDICARE, SELFPAY | PROVIDERS: PCP Internal Medicine; Visit Provider Internal Medicine | DX: I48.19 Other persistent atrial fibrillation (principal) | CPT/HCPCS: 99212 ==

== ENCOUNTER 2024-04-10 09:11 | Outpatient (AMB) | payer MEDICARE, SELFPAY ==
--- NOTE | 2024-04-10 10:42 | MHC.PC.OV ---
Intake Visit Reasons: 3 month follow up Allergies No Known Allergies Allergy (Verified 01/29/24 08:58) Medication List - Last Reconciled 04/10/24 by Nico Royal MD apixaban (Eliquis) 5 mg PO BID 90 days azithromycin For 250 mg dose pack: take 500 mg today (day 1), then 250 mg for 4 days (days 2-5) PO benzonatate 100 mg PO BID PRN levothyroxine 25 mcg PO DAILY metoprolol succinate ER (Toprol XL) 50 mg PO DAILY prednisone 20 mg PO DAILY tramadol 50 mg PO DAILY 90 days Tobacco use date assessed: 01/17/24 Dental Screening Dental Screen Date: 01/17/24 HPI 3 month follow up HPI Details Patient is 89-year-old female who suffers from multiple joint severe osteoarthritis Patient has difficulty sleeping at night because of pain, she is currently taking Tylenol for pain relief tramadol helped her initially but now she is having pain again and has limited mobility i am increasing the dose to bid side effect of med reviewed again with patient and her daughter including , dependence, risk for fall, constipation She is taking it during afternoon. and now will start one in am or at night Medication refill sent for next 3 months 90 tablets We will follow-up in 3 months for refill. 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 Adonis Sandra, Aline Payne, Venu Segal and colleagues, with an educational stephenie from [employer]. Review of Systems Const Denies chills and Denies fever(s) ENT Denies epistaxis and Denies nasal discharge Card Denies chest pain Resp Denies chest congestion, Denies cough and Denies hemoptysis GI Denies diarrhea and Denies nausea Skin/Breast Denies rash Neuro Reports no additional complaints Psych Reports no additional complaints Endo Reports no additional complaints Physical exam (Primary Care) Tobacco/Smoking Status: Tobacco use Status Tobacco use date assessed 01/17/24 01/29/24 08:08 Patient Tobacco Use Status Former Tobacco user 01/29/24 08:50 e-Cigarette/Vaping Use Never Used 01/29/24 08:08 Thrive Assessment: Date of Thrive Assessment Date Thrive assessed 01/01/24 01/29/24 08:08 Telehealth Telehealth Location of provider rendering services: practice address Location of patient: address on file Patient Identification confirmed using: Name, : Yes Telehealth method: voice only Patient verbally consented to treatment: Yes Patient verbally consented to billing insurance company: Yes Patient informed of any privacy concerns related to visit: Yes Minutes spent on Phone/Video with Pt.: 14 Assessment and Plan Assessment & Plan (1) Osteoarthritis, hip, bilateral: Code(s): M16.0 - Bilateral primary osteoarthritis of hip Qualifiers: Osteoarthritis type: primary Qualified Code(s): M16.0 - Bilateral primary osteoarthritis of hip (2) Osteoarthritis of knees, bilateral: Code(s): M17.0 - Bilateral primary osteoarthritis of knee Qualifiers: Osteoarthritis type: primary Qualified Code(s): M17.0 - Bilateral primary osteoarthritis of knee (3) Right lumbar radiculitis: Code(s): M54.16 - Radiculopathy, lumbar region (4) Pain management: Code(s): R52 - Pain, unspecified Plan Patient is 89-year-old female who suffers from multiple joint severe osteoarthritis Patient has difficulty sleeping at night because of pain, she is currently taking Tylenol for pain relief tramadol helped her initially but now she is having pain again and has limited mobility i am increasing the dose to bid side effect of med reviewed again with patient and her daughter including , dependence, risk for fall, constipation She is taking it during afternoon. and now will start one in am or at night Medication refill sent for next 3 months 90 tablets We will follow-up in 3 months for refill. Medications: Changed From tramadol 50 mg PO DAILY 90 days 90 tabs 0RF To tramadol 50 mg PO BID 180 tabs 0RF 90 days Coding Level of Care Code Tele Est Pt Level 3 (03020) Complex EM visit Add On G2211 Diagnoses Primary osteoarthritis of both hips M16.0 Osteoarthritis type: primary Primary osteoarthritis of both knees M17.0 Osteoarthritis type: primary Right lumbar radiculitis M54.16 Pain management R52
== END 2024-04-10 16:49 | disposition home or self-care (01) ==
PROVIDERS: PCP Internal Medicine; Visit Provider Internal Medicine
DX: M16.0 Bilateral primary osteoarthritis of hip (principal); M17.0 Bilateral primary osteoarthritis of knee; M54.16 Radiculopathy, lumbar region
CPT/HCPCS: 99442

== ENCOUNTER 2024-06-27 10:25 | Outpatient (AMB) | payer MEDICARE, SELFPAY ==
[2024-06-27 10:27] VITALS: BP 126/74; PULSE 78; O2SAT 98
--- NOTE | 2024-06-27 10:27 | A.OFFPC_ITS ---
Vital Signs 06/27/24 10:27 Height 5 ft 1 in BMI Reason not done Patient refused/unable BP 126/74 Blood Pressure Location Lt brachial Position Sitting Pulse 78 Pulse Source Pulse Oximeter Pulse Oximetry (%) 98 Oxygen Delivery Method Room Air Intake Visit Reasons: 11 Wk F/u~ Allergies No Known Allergies Allergy (Verified 06/27/24 10:28) Medication List - Last Reconciled 06/27/24 by Nico Royal MD apixaban (Eliquis) 5 mg PO BID levothyroxine 25 mcg PO DAILY metoprolol succinate ER (Toprol XL) 50 mg PO DAILY tramadol 50 mg PO BID 90 days Tobacco use date assessed: 06/27/24 Fall risk assessment: No Falls in past year Last assessed Fall Risk: 06/27/24 Dental Screening Dental Screen Date: 06/27/24 Did you have a dental visit in the last 12 months?: No Did you have a dental problem in the last 6 months where you did not have access to dental care?: No Was dental information given to patient?: No HPI 11 Wk F/u~ HPI Details Patient is 89-year-old female came in today for her regular follow-up appointment with her son Patient is feeling very depressed and anxious as her daughter is recently diagnosed with cancer and she has chemotherapy today Usually she comes in with her daughter for this visit Patient is verbalizing that she is having difficulty sleeping and she feels jittery all day She takes tramadol 2 times a day for severe osteoarthritis of her knees she is almost wheelchair-bound and use walker to walk at home She is requesting assistance with her distress Tramadol refill sent I am prescribing Lexapro she is to start that in the morning And lorazepam 0.5 mg half tablet to full tablet at night Patient was advised of risk of fall with lorazepam Blood pressure is stable LFT: Patient declined to do labs today she said she does not want to do anymore blood work [facility] Medical History Persistent atrial fibrillation Medicare annual wellness visit, subsequent Encounter for anticoagulation discussion and counseling Risk for falls Difficulty walking 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 1. Little interest or pleasure in doing things: more than half the days 2. Feeling down, depressed, or hopeless: several days 3. Trouble falling or staying asleep, or sleeping too much: more than half the days 4. Feeling tired or having little energy: more than half the days 5. Poor appetite or overeating: not at all 6. Feeling bad about yourself - or that you are a failure or have let yourself or your family down: not at all 7. Trouble concentrating on things, such as reading the newspaper or watching television: not at all 8. Moving or speaking so slowly that other people could have noticed. Or the opposite - being so fidgety or restless that you have been moving around a lot more than usual: not at all 9. Thoughts that you would be better off or of hurting yourself in some way: not at all Total score: 0 Depression Screening Interpretation: Negative Depression Screening Done: Yes 70808 - PHQ-9 Billing: Yes Source: Developed by Drs. Adonis Sandra, Aline Payne, Venu Segal and colleagues, with an educational stephenie from [employer]. Thrive Questionnaire Date Thrive assessed: 01/01/24 I am a: Parent/Caregiver What is your living situation today?: I have a steady place to live Within the past 12 months, did the food you bought not last and you didn't have the money to get more?: Never true Within the past 12 months, did you worry whether your food would run out before you got money to buy more?: Never true Do you have trouble paying for medicines?: No Do you have trouble getting transportation to medical appointments?: No Do you have trouble paying your heating and electricity bill?: No Do you have trouble taking care of your child, family member or friend?: No Do you have trouble with day-to-day activities such as bathing, preparing meals, shopping, managing finances, etc.?: Yes Are you currently unemployed and looking for a job?: No Are you interested in more education?: No Please select the resources that you would like help with: None Currently or been in a relationship where the following occur: No concerns reported THRIVE Score: 0 AUDIT C Alcohol Use Questionnaire (AUDIT-C) 1. How often do you have a drink containing alcohol?: Never 3. How often do you have six or more drinks on one occasion?: Never Total Score: 0 Score Reviewed/Action Taken: Yes RADHA-7 AMB Questionnaire RADHA-7 Date RADHA - 7 assessed: 01/01/24 Feeling nervous, anxious, or on edge: 1 = Several days Not being able to stop or control worryin = More than half the days Worrying too much about different things: 2 = More than half the days Trouble relaxin = Not at all Being so restless that it is hard to sit still: 0 = Not at all Becoming easily annoyed or irritable: 0 = Not at all Feeling afraid as if something awful might happen: 0 = Not at all Total RADHA-7 score (0-4 normal; 5-9 mild; 10-14 moderate; 15-21 severe): 5 Source: Developed by Drs. Adonis Sandra, Aline Payne, Venu Segal and colleagues, with an educational stephenie from [employer]. Review of Systems Const Denies chills and Denies fever(s) ENT Denies epistaxis and Denies nasal discharge Card Denies chest pain Resp Denies chest congestion, Denies cough and Denies hemoptysis GI Denies diarrhea and Denies nausea Skin/Breast Denies rash Neuro Reports no additional complaints Psych Reports no additional complaints Endo Reports no additional complaints Physical exam (Primary Care) Vital Signs: Last Vital Signs Pulse 78 06/27/24 10:27 BP 126/74 06/27/24 10:27 Pulse Ox 98 06/27/24 10:27 Oxygen Delivery Method Room Air 06/27/24 10:27 Tobacco/Smoking Status: Tobacco use Status Tobacco use date assessed 06/27/24 06/27/24 10:34 Patient Tobacco Use Status Former Tobacco user 06/27/24 10:34 e-Cigarette/Vaping Use Never Used 06/27/24 10:34 Depression Screening Interpretation: Negative Thrive Assessment: Date of Thrive Assessment Date Thrive assessed 01/01/24 06/27/24 10:34 Currently or been in a relationship where the following occur: No concerns reported Const General: cooperative, comfortable and no acute distress Orientation/consciousness: patient oriented x3 HENMT Head: Yes normocephalic Eyes General: appearance normal, both eyes and all related structures Neck Neck: Yes supple Resp Effort & Inspection: normal respiratory effort, no cough and no stridor Cardio Heart sounds: S1 normal heart sound present and S2 normal heart sound present Skin General skin exam: turgor normal Neuro General: patient oriented x3, tone normal and moves all extremities Extrem Right lower extremity: no edema Left lower extremity: no edema Assessment and Plan Assessment & Plan (1) Osteoarthritis, hip, bilateral: Code(s): M16.0 - Bilateral primary osteoarthritis of hip Qualifiers: Osteoarthritis type: primary Qualified Code(s): M16.0 - Bilateral primary osteoarthritis of hip (2) Osteoarthritis of knees, bilateral: Code(s): M17.0 - Bilateral primary osteoarthritis of knee Qualifiers: Osteoarthritis type: primary Qualified Code(s): M17.0 - Bilateral primary osteoarthritis of knee (3) Right lumbar radiculitis: Code(s): M54.16 - Radiculopathy, lumbar region (4) Pain management: Code(s): R52 - Pain, unspecified (5) Depression, major, single episode, mild: Code(s): F32.0 - Major depressive disorder, single episode, mild (6) Unable to sleep: Code(s): G47.00 - Insomnia, unspecified (7) Jittery feeling: Code(s): R45.0 - Nervousness Plan Patient is 89-year-old female came in today for her regular follow-up appointment with her son Patient is feeling very depressed and anxious as her daughter is recently diagnosed with cancer and she has chemotherapy today Usually she comes in with her daughter for this visit Patient is verbalizing that she is having difficulty sleeping and she feels jittery all day She takes tramadol 2 times a day for severe osteoarthritis of her knees she is almost wheelchair-bound and use walker to walk at home She is requesting assistance with her distress Tramadol refill sent I am prescribing Lexapro she is to start that in the morning And lorazepam 0.5 mg half tablet to full tablet at night Patient was advised of risk of fall with lorazepam Blood pressure is stable LFT: Patient declined to do labs today she said she does not want to do anymore blood work Medications: New escitalopram oxalate (Lexapro) 10 mg PO .q am 90 tabs 0RF Mood stabilizer lorazepam Take half a tablet or full tablet at bedtime, medication will cause drowsiness there is a risk of fall 0.5 mg PO BEDTIME PRN 30 tabs 1RF To sleep Refilled tramadol 50 mg PO BID 180 tabs 0RF 90 days Coding Level of Care Code Est Pt Level 4 (28534) Complex EM visit Add On G2211 Diagnoses Primary osteoarthritis of both hips M16.0 Osteoarthritis type: primary Primary osteoarthritis of both knees M17.0 Osteoarthritis type: primary Right lumbar radiculitis M54.16 Pain management R52 Depression, major, single episode, mild F32.0 Unable to sleep G47.00 Jittery feeling R45.0
== END 2024-06-27 11:17 | disposition home or self-care (01) ==
PROVIDERS: PCP Internal Medicine; Visit Provider Internal Medicine
DX: M16.0 Bilateral primary osteoarthritis of hip (principal); F32.0 Major depressive disorder, single episode, mild; M17.0 Bilateral primary osteoarthritis of knee; M54.16 Radiculopathy, lumbar region; G47.00 Insomnia, unspecified; R45.0 Nervousness
CPT/HCPCS: 99214; G2211

== ENCOUNTER 2024-09-12 09:17 | Outpatient (AMB) | payer MEDICARE, SELFPAY ==
[2024-09-12 09:19] VITALS: BP 132/74; PULSE 96; O2SAT 97
--- NOTE | 2024-09-12 09:19 | A.OFFPC_ITS ---
Vital Signs 09/12/24 09:19 Height 5 ft 1 in BMI Reason not done Patient refused/unable BP 132/74 Blood Pressure Location Rt brachial Position Sitting Pulse 96 Pulse Source Pulse Oximeter Pulse Oximetry (%) 97 Oxygen Delivery Method Room Air Intake Visit Reasons: 11 week f/u Allergies No Known Allergies Allergy (Verified 09/12/24 09:20) Medication List - Last Reconciled 09/12/24 by Nico Royal MD apixaban (Eliquis) 5 mg PO BID escitalopram oxalate (Lexapro) 10 mg PO .q am levothyroxine 25 mcg PO DAILY lorazepam 0.5 mg PO BEDTIME PRN metoprolol succinate ER (Toprol XL) 50 mg PO DAILY tramadol 50 mg PO BID 90 days Tobacco use date assessed: 09/12/24 Fall risk assessment: No Falls in past year Last assessed Fall Risk: 09/12/24 Dental Screening Dental Screen Date: 09/12/24 Did you have a dental visit in the last 12 months?: Yes Did you have a dental problem in the last 6 months where you did not have access to dental care?: No Was dental information given to patient?: Patient has dentist HPI 11 week f/u HPI Details The patient presents for medication refills and evaluation of mood improvement. Came in with her Son. 89-year-old female with a history of art hritis presenting for a medication refill and evaluation of mood improvement with existing treatment. The patient reports improvement in mood since the initiation of treatment, although she initially delayed taking medication. The patient has a family history of pneumonia exposure; patient's daughter was diagnosed with cancer, and is currently taking antibiotic for pneumonia at home, patient is asymptomatic, with clear lungs on examination. She needed repeat labs which she declined last visit seeing she does not want to have anymore labs Pneumonia exposure Exposure to pneumonia through a family member was addressed. The patient is asymptomatic, with clear lung auscultation. Education was provided regarding symptom vigilance, especially given her household exposure. She was counseled on maintaining preventative measures such as mask-wearing around symptomatic individuals. Depression The patient shows mood improvement with current pharmacotherapy, consisting of morning dose of Lexapro and nighttime doses lorazepam 0.5 mg. She initially opted against taking the medication but has since been compliant with the regimen. I will send a refill for the prescriptions, adhering to the current dosing. Additional counseling on the controlled nature of her medication has been discussed. Patient is aware of side effect of lorazepam Arthritis The patient is prescribed tramadol for arthritis-related discomfort, I advised continued caution due to the medication?s potential for causing drowsiness and increasing the risk of falls. Continue levothyroxine 25 mg Patient is instructions Continue taking your arthritis and depression medications as prescribed, with the current dosing regimen of one pill in the morning and another at night. - Monitor for any pneumonia-like symptom s such as cough, fever, or chest congestion, especially with recent family exposure to pneumonia. Seek medical care if symptoms develop. - Remain cautious with your medications to avoid drowsiness and subsequent fall risks. - Ensure proper mask usage when around s ymptomatic individuals to mitigate exposure risk. - Schedule and attend the follow-up appo intment in three months for continued care and medication management. [facility] Medical History Persistent atrial fibrillation Medicare annual wellness visit, subsequent Encounter for anticoagulation discussion and counseling Risk for falls Difficulty walking Hx of prison use of blood thinners LFT elevation Elevated TSH Irregular heart rate Osteoarthritis of right knee Arthritis Social History Housing: House Patient Tobacco Use Status: Former Tobacco user e-Cigarette/Vaping Use: Never Used service: No Current occupational status: retired Current occupation: right handed Cognitive needs: No Hearing needs: No Vision needs: No Questionnaire PHQ-9 Over the last 2 weeks, how often have you been bothered by any of the following problems? 1. Little interest or pleasure in doing things: not at all 2. Feeling down, depressed, or hopeless: not at all 3. Trouble falling or staying asleep, or sleeping too much: not at all 4. Feeling tired or having little energy: not at all 5. Poor appetite or overeating: not at all 6. Feeling bad about yourself - or that you are a failure or have let yourself or your family down: not at all 7. Trouble concentrating on things, such as reading the newspaper or watching television: not at all 8. Moving or speaking so slowly that other people could have noticed. Or the opposite - being so fidgety or restless that you have been moving around a lot more than usual: not at all 9. Thoughts that you would be better off or of hurting yourself in some way : not at all Total score: 0 Depression Screening Interpretation: Negative Depression Screening Done: Yes [id number] - PHQ-9 Billing: Yes Source: Developed by Drs. Adonis Sandra, Venu Peralta and colleagues, with an educational stephenie from [employer]. Thrive Questionnaire Date Thrive assessed: 09/12/24 I am a: Parent/Caregiver What is your living situation today?: I have a steady place to live Within the past 12 months, did the food you bought not last and you didn't have the money to get more?: Never true Within the past 12 months, did you worry whether your food would run out before you got money to buy more?: Never true Do you have trouble paying for medicines?: No Do you have trouble getting transportation to medical appointments?: No Do you have trouble paying your heating and electricity bill?: No Do you have trouble taking care of your child, family member or friend?: No Do you have trouble with day-to-day activities such as bathing, preparing meals, shopping, managing finances, etc.?: Yes Are you currently unemployed and looking for a job?: No Are you interested in more education?: No Please select the resources that you would like help with: None Currently or been in a relationship where the following occur: No concerns reported THRIVE Score: 0 AUDIT C Alcohol Use Questionnaire (AUDIT-C) 1. How often do you have a drink containing alcohol?: Never 3. How often do you have six or more drinks on one occasion?: Never Total Score: 0 Score Reviewed/Action Taken: Yes RADHA-7 AMB Questionnaire RADHA-7 Date RADHA - 7 assessed: 01/01/24 Source: Developed by Drs. Adonis Sandra, Venu Peralta and colleagues, with an educational stephenie from [employer]. Review of Systems Const Denies chills and Denies fever(s) ENT Denies epistaxis and Denies nasal discharge Card Denies chest pain Resp Denies chest congestion, Denies cough and Denies hemoptysis GI Denies diarrhea and Denies nausea Skin/Breast Denies rash Neuro Reports no additional complaints Psych Reports no additional complaints Endo Reports no additional complaints Physical exam (Primary Care) Vital Signs: Last Vital Signs Pulse 96 09/12/24 09:19 BP 132/74 09/12/24 09:19 Pulse Ox 97 09/12/24 09:19 Oxygen Delivery Method Room Air 09/12/24 09:19 Tobacco/Smoking Status: Tobacco use Status Tobacco use date assessed 06/27/24 09/12/24 09:19 Patient Tobacco Use Status Former Tobacco user 09/12/24 09:19 e-Cigarette/Vaping Use Never Used 09/12/24 09:19 Depression Screening Interpretation: Negative Thrive Assessment: Date of Thrive Assessment Date Thrive assessed 06/27/24 09/12/24 09:19 Currently or been in a relationship where the following occur: No concerns reported Const General: cooperative, comfortable and no acute distress Orientation/consciousness: patient oriented x3 HENMT Head: Yes normocephalic Eyes General: appearance normal, both eyes and all related structures Neck Neck: Yes supple Resp Effort & Inspection: normal respiratory effort, no cough and no stridor Cardio Heart sounds: S1 normal heart sound present and S2 normal heart sound present Skin General skin exam: turgor normal Neuro General: patient oriented x3, tone normal and moves all extremities Extrem Right lower extremity: no edema Left lower extremity: no edema Coding Level of Care Code Est Pt Level 4 (92795) Complex EM visit Add On G2211 Diagnoses Insomnia, unspecified type G47.00 Insomnia type: unspecified Recurrent major depressive disorder, in partial remission F33.41 Active/Remission status: in partial remission Jittery feeling R45.0 Persistent atrial fibrillation I48.19 Pain management R52 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 Pre-diabetes R73.03 Primary osteoarthritis of both knees M17.0 Osteoarthritis type: primary Additional Codes PHQ-9 - 38298 - PHQ-9 Billing: Yes ([id number]) Assessment & Plan Assessment & Plan (1) Unable to sleep: Code(s): G47.00 - Insomnia, unspecified Category: Medical Qualifiers: Insomnia type: unspecified Qualified Code(s): G47.00 - Insomnia, unspecified (2) Major depression, recurrent: Code(s): F33.9 - Major depressive disorder, recurrent, unspecified Category: Medical Qualifiers: Active/Remission status: in partial remission Qualified Code(s): F33.41 - Major depressive disorder, recurrent, in partial remission (3) Jittery feeling: Code(s): R45.0 - Nervousness Category: Medical (4) Persistent atrial fibrillation: Code(s): I48.19 - Other persistent atrial fibrillation Category: Medical (5) Pain management: Code(s): R52 - Pain, unspecified Category: Medical (6) Other specified hypothyroidism: Code(s): E03.8 - Other specified hypothyroidism Category: Medical (7) 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 Came in with her Son. 89-year-old female with a history of arthritis presenting for a medication refill and evaluation of mood improvement with existing treatment. The patient reports improvement in mood since the initiation of treatment, although she initially delayed taking medication. The patient has a family history of pneumonia exposure; patient's daughter was diagnosed with cancer, and is currently taking antibiotic for pneumonia at home, patient is asymptomatic, with clear lungs on examination. She needed repeat labs which she declined last visit seeing she does not want to have anymore labs Pneumonia exposure Exposure to pneumonia through a family member was addressed. The patient is asymptomatic, with clear lung auscultation. Education was provided regarding symptom vigilance, especially given her household exposure. She was counseled on maintaining preventative measures such as mask-wearing around symptomatic individuals. Depression The patient shows mood improvement with current pharmacotherapy, consisting of morning dose of Lexapro and nighttime doses lorazepam 0.5 mg. She initially opted against taking the medication but has since been compliant with the regimen. I will send a refill for the prescriptions, adhering to the current dosing. Additional counseling on the controlled nature of her medication has been discussed. Patient is aware of side effect of lorazepam Arthritis The patient is prescribed tramadol for arthritis-related discomfort, I advised continued caution due to the medication?s potential for causing drowsiness and increasing the risk of falls. Continue levothyroxine 25 mg Patient is instructions Continue taking your arthritis and depression medications as prescribed, with the current dosing regimen of one pill in the morning and another at night. - Monitor for any pneumonia-like symptoms such as cough, fever, or chest congestion, especially with recent family exposure to pneumonia. Seek medical care if symptoms develop. - Remain cautious with your medications to avoid drowsiness and subsequent fall risks. - Ensure proper mask usage when around symptomatic individuals to mitigate exposure risk. - Schedule and attend the follow-up appointment in three months for continued care and medication management. Medications: Changed From lorazepam Take half a tablet or full tablet at bedtime, medication will cause drowsiness there is a risk of fall 0.5 mg PO BEDTIME PRN 30 tabs 1RF To sleep To lorazepam 0.5 mg PO BEDTIME 90 days PRN 90 tabs 0RF To sleep Refilled escitalopram oxalate (Lexapro) 10 mg PO .q am 90 tabs 3RF Mood stabilizer
== END 2024-09-12 09:34 | disposition home or self-care (01) ==
PROVIDERS: PCP Internal Medicine; Visit Provider Internal Medicine
DX: G47.00 Insomnia, unspecified (principal); F33.41 Major depressive disorder, recurrent, in partial remission; R45.0 Nervousness; I48.19 Other persistent atrial fibrillation; R52 Pain, unspecified; E03.8 Other specified hypothyroidism; Z99.89 Dependence on other enabling machines and devices; R73.03 Prediabetes; M17.0 Bilateral primary osteoarthritis of knee

== ENCOUNTER → 2024-09-12 09:17 | Outpatient (BNVA) | payer MEDICARE, SELFPAY | PROVIDERS: PCP Internal Medicine; Visit Provider Internal Medicine | DX: F33.41 Major depressive disorder, recurrent, in partial remission (principal); G47.00 Insomnia, unspecified; R45.0 Nervousness; I48.19 Other persistent atrial fibrillation; R52 Pain, unspecified; E03.8 Other specified hypothyroidism; R73.03 Prediabetes; M17.0 Bilateral primary osteoarthritis of knee; Z99.89 Dependence on other enabling machines and devices | CPT/HCPCS: 96127; 99212 ==

== ENCOUNTER 2024-12-17 09:44 | Outpatient (AMB) | payer MEDICARE, SELFPAY ==
[2024-12-17 09:46] VITALS: BP 122/72; PULSE 87; O2SAT 97
--- NOTE | 2024-12-17 09:46 | A.OFFPC_ITS ---
Vital Signs 12/17/24 09:46 Height 5 ft 1 in BMI Reason not done Patient refused/unable BP 122/72 Blood Pressure Location Lt brachial Position Sitting Pulse 87 Pulse Source Pulse Oximeter Pulse Oximetry (%) 97 Oxygen Delivery Method Room Air Intake Visit Reasons: 3 months follow up Allergies No Known Allergies Allergy (Verified 12/17/24 09:50) Medication List - Last Reconciled 12/17/24 by Nico Royal MD apixaban (Eliquis) 5 mg PO BID escitalopram oxalate (Lexapro) 10 mg PO .q am levothyroxine 25 mcg PO DAILY lorazepam 0.5 mg PO BEDTIME PRN 90 days metoprolol succinate ER (Toprol XL) 50 mg PO DAILY tramadol 50 mg PO BID 90 days Tobacco use date assessed: 09/12/24 Dental Screening Dental Screen Date: 09/12/24 HPI 3 months follow up HPI Details History - The patient is an 89-year-old female p resenting with chronic pain and insomnia. She is here with her son - Reports Tramadol used to relieve pain effectively but is no longer efficacious. Muscle spasms due to cold weather increase joint discomfort. - Experiencing difficulty in sleep vaughn nuity, with multiple night-time awakenings attributed to nocturia. Patient uses water late into the evening, potentially contributing to this issue. - Previous lab results indicated slight liver enzyme elevation. Continues on blood-thinning regimen with Eliquis and Levothyroxine for hypothyroidism. - Currently on Escitalopram for mood sta bilization and has days of mood instability. 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 - Continue current medication regimen, b ut consult for adjustment if symptoms persist. - Limit liquid intake in the evening to reduce nocturia-related sleep disturbances. - Ambien 5 mg sent to be taken only as n eeded and not every night 30 tablets sent, patient and her son was notified there is a risk of fall with this medication at night - Arrange for updated laboratory evaluat ions as it has been nearly a year since the last set. - Attend the scheduled follow-up appoint ment in early March. Review of Systems. - General: No fever no chills - Neurological: No headaches no dizziness - Ear nose throat: No sore throat no hearing difficulty no ear pain - Cardiovascular: No syncope, no chest pain, no palpitations - Gastrointestinal: No nausea vomiting or diarrhea - Endocrine: No polyuria polydipsia no heat intolerance - Genitourinary: No dysuria , no blood in urine Physical Exam General: No acute distress, sitting in wheelchair HEENT: No acute findings Neck: Supple Respiratory system: Able to talk in full sentences, no audible wheeze cardiovascular: S1-S2 irregularly irregular Gastrointestinal: No pain Extremities: No swelling 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 oriented x3 motor sensory intact Skin: Normal turgor [facility] Medical History Persistent atrial fibrillation Medicare annual wellness visit, subsequent Encounter for anticoagulation discussion and counseling Risk for falls Difficulty walking 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 1. Little interest or pleasure in doing things: more than half the days 2. Feeling down, depressed, or hopeless: not at all 3. Trouble falling or staying asleep, or sleeping too much: not at all 4. Feeling tired or having little energy: not at all 5. Poor appetite or overeating: not at all 6. Feeling bad about yourself - or that you are a failure or have let yourself or your family down: not at all 7. Trouble concentrating on things, such as reading the newspaper or watching television: not at all 8. Moving or speaking so slowly that other people could have noticed. Or the opposite - being so fidgety or restless that you have been moving around a lot more than usual: not at all 9. Thoughts that you would be better off or of hurting yourself in some way: not at all Total score: 2 Depression Screening Interpretation: Negative Depression Screening Done: Yes 51571 - PHQ-9 Billing: Yes Source: Developed by Drs. Adonis Sandra, Aline Payne, Venu Segal and colleagues, with an educational stephenie from [employer]. Thrive Questionnaire Date Thrive assessed: 12/17/24 I am a: Parent/Caregiver What is your living situation today?: I have a steady place to live Within the past 12 months, did the food you bought not last and you didn't have the money to get more?: Never true Within the past 12 months, did you worry whether your food would run out before you got money to buy more?: Never true Do you have trouble paying for medicines?: No Do you have trouble getting transportation to medical appointments?: No Do you have trouble paying your heating and electricity bill?: No Do you have trouble taking care of your child, family member or friend?: No Do you have trouble with day-to-day activities such as bathing, preparing meals, shopping, managing finances, etc.?: No Are you currently unemployed and looking for a job?: No Are you interested in more education?: No Please select the resources that you would like help with: None Currently or been in a relationship where the following occur: I choose not to answer THRIVE Score: 0 AUDIT C Alcohol Use Questionnaire (AUDIT-C) 1. How often do you have a drink containing alcohol?: Never 3. How often do you have six or more drinks on one occasion?: Never Total Score: 0 Score Reviewed/Action Taken: Yes RADHA-7 AMB Questionnaire RADHA-7 Date RADHA - 7 assessed: 12/17/24 Feeling nervous, anxious, or on edge: 0 = Not at all Not being able to stop or control worryin = Not at all Worrying too much about different things: 0 = Not at all Trouble relaxin = Not at all Being so restless that it is hard to sit still: 0 = Not at all Becoming easily annoyed or irritable: 0 = Not at all Feeling afraid as if something awful might happen: 0 = Not at all Total RADHA-7 score (0-4 normal; 5-9 mild; 10-14 moderate; 15-21 severe): 0 Source: Developed by Drs. Adonis Sandra, Aline Payne, Venu Segal and colleagues, with an educational stephenie from [employer]. RADHA-7 Assessment Billing RADHA-7 Assessment Tool: RADHA-7 Assessment 97809 Physical exam (Primary Care) Vital Signs: Last Vital Signs Pulse 87 12/17/24 09:46 BP 122/72 12/17/24 09:46 Pulse Ox 97 12/17/24 09:46 Oxygen Delivery Method Room Air 12/17/24 09:46 Tobacco/Smoking Status: Tobacco use Status Tobacco use date assessed 09/12/24 12/17/24 09:50 Patient Tobacco Use Status Former Tobacco user 12/17/24 09:50 e-Cigarette/Vaping Use Never Used 12/17/24 09:50 PHQ-9: PHQ-9 Score PHQ-9: Total score 2 12/17/24 10:37 Depression Screening Interpretation: Negative Thrive Assessment: Date of Thrive Assessment Date Thrive assessed 12/17/24 12/17/24 09:57 Currently or been in a relationship where the following occur: I choose not to answer Coding Level of Care Code Est Pt Level 4 (19819) Complex EM visit Add On G2211 Diagnoses Longstanding persistent atrial fibrillation I48.11 Atrial fibrillation type: longstanding persistent Pre-diabetes R73.03 Other specified hypothyroidism E03.8 Recurrent major depressive disorder, in partial remission F33.41 Active/Remission status: in partial remission Insomnia, unspecified type G47.00 Insomnia type: unspecified 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 Z99.89 Primary osteoarthritis of both hips M16.0 Osteoarthritis type: primary Primary osteoarthritis of both knees M17.0 Osteoarthritis type: primary Right lumbar radiculitis M54.16 Additional Codes RADHA-7 Assessment Billing - RADHA-7 Assessment Tool: RADHA-7 Assessment 69327 ([id number]) PHQ-9 - 45391 - PHQ-9 Billing: Yes ([id number]) Assessment & Plan Assessment & Plan (1) Atrial fibrillation: Code(s): I48.91 - Unspecified atrial fibrillation Category: Medical Qualifiers: Atrial fibrillation type: longstanding persistent Qualified Code(s): I48.11 - Longstanding persistent atrial fibrillation (2) Pre-diabetes: Code(s): R73.03 - Prediabetes Category: Medical (3) Other specified hypothyroidism: Code(s): E03.8 - Other specified hypothyroidism Category: Medical (4) Major depression, recurrent: Code(s): F33.9 - Major depressive disorder, recurrent, unspecified Category: Medical Qualifiers: Active/Remission status: in partial remission Qualified Code(s): F33.41 - Major depressive disorder, recurrent, in partial remission (5) Unable to sleep: Code(s): G47.00 - Insomnia, unspecified Category: Medical Qualifiers: Insomnia type: unspecified Qualified Code(s): G47.00 - Insomnia, unspecified (6) 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: Code(s): Z99.89 - Dependence on other enabling machines and devices Category: Medical (7) Osteoarthritis, hip, bilateral: Code(s): M16.0 - Bilateral primary osteoarthritis of hip Category: Medical Qualifiers: Osteoarthritis type: primary Qualified Code(s): M16.0 - Bilateral primary osteoarthritis of hip (8) Osteoarthritis of knees, bilateral: Code(s): M17.0 - Bilateral primary osteoarthritis of knee Category: Medical Qualifiers: Osteoarthritis type: primary Qualified Code(s): M17.0 - Bilateral primary osteoarthritis of knee (9) Right lumbar radiculitis: Code(s): M54.16 - Radiculopathy, lumbar region Category: Medical Plan History - The patient is an 89-year-old female presenting with chronic pain and insomnia. She is here with her son - Reports Tramadol used to relieve pain effectively but is no longer efficacious. Muscle spasms due to cold weather increase joint discomfort. - Experiencing difficulty in sleep continuity, with multiple night-time awakenings attributed to nocturia. Patient uses water late into the evening, potentially contributing to this issue. - Previous lab results indicated slight liver enzyme elevation. Continues on blood-thinning regimen with Eliquis and Levothyroxine for hypothyroidism. - Currently on Escitalopram for mood stabilization and has days of mood instability. 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 - Continue current medication regimen, but consult for adjustment if symptoms persist. - Limit liquid intake in the evening to reduce nocturia-related sleep disturbances. - Ambien 5 mg sent to be taken only as needed and not every night 30 tablets sent, patient and her son was notified there is a risk of fall with this medication at night - Arrange for updated laboratory evaluations as it has been nearly a year since the last set. - Attend the scheduled follow-up appointment in early March. Orders: Orders Complete Blood Count Auto Diff Today E03.8 - Other specified hypothyroidism, F33.41 - Major depressive disorder, recurrent, in partial remission, G47.00 - Insomnia, unspecified, I48.11 - Longstanding persistent atrial fibrillation, M16.0 - Bilateral primary osteoarthritis of hip, M17.0 - Bilateral primary osteoarthritis of knee, M54.16 - Radiculopathy, lumbar region, R73.03 - Prediabetes, Z99.89 - Dependence on other enabling machines and devices Comprehensive Met. Panel Today E03.8 - Other specified hypothyroidism, F33.41 - Major depressive disorder, recurrent, in partial remission, G47.00 - Insomnia, unspecified, I48.11 - Longstanding persistent atrial fibrillation, M16.0 - Bilateral primary osteoarthritis of hip, M17.0 - Bilateral primary osteoarthritis of knee, M54.16 - Radiculopathy, lumbar region, R73.03 - Prediabetes, Z99.89 - Dependence on other enabling machines and devices TSH reflex Free T4 Today E03.8 - Other specified hypothyroidism, F33.41 - Major depressive disorder, recurrent, in partial remission, G47.00 - Insomnia, unspecified, I48.11 - Longstanding persistent atrial fibrillation, M16.0 - Bilateral primary osteoarthritis of hip, M17.0 - Bilateral primary osteoarthritis of knee, M54.16 - Radiculopathy, lumbar region, R73.03 - Prediabetes, Z99.89 - Dependence on other enabling machines and devices LDL Cholesterol Direct Today E03.8 - Other specified hypothyroidism, F33.41 - Major depressive disorder, recurrent, in partial remission, G47.00 - Insomnia, unspecified, I48.11 - Longstanding persistent atrial fibrillation, M16.0 - Bilateral primary osteoarthritis of hip, M17.0 - Bilateral primary osteoarthritis of knee, M54.16 - Radiculopathy, lumbar region, R73.03 - Prediabetes, Z99.89 - Dependence on other enabling machines and devices Magnesium Today E03.8 - Other specified hypothyroidism, F33.41 - Major depressive disorder, recurrent, in partial remission, G47.00 - Insomnia, unspecified, I48.11 - Longstanding persistent atrial fibrillation, M16.0 - Bilateral primary osteoarthritis of hip, M17.0 - Bilateral primary osteoarthritis of knee, M54.16 - Radiculopathy, lumbar region, R73.03 - Prediabetes, Z99.89 - Dependence on other enabling machines and devices Vitamin D 25-OH (D2 and D3) Today E03.8 - Other specified hypothyroidism, F33.41 - Major depressive disorder, recurrent, in partial remission, G47.00 - Insomnia, unspecified, I48.11 - Longstanding persistent atrial fibrillation, M16.0 - Bilateral primary osteoarthritis of hip, M17.0 - Bilateral primary osteoarthritis of knee, M54.16 - Radiculopathy, lumbar region, R73.03 - Prediabetes, Z99.89 - Dependence on other enabling machines and devices Vitamin B12 Today E03.8 - Other specified hypothyroidism, F33.41 - Major depressive disorder, recurrent, in partial remission, G47.00 - Insomnia, unspecified, I48.11 - Longstanding persistent atrial fibrillation, M16.0 - Bilateral primary osteoarthritis of hip, M17.0 - Bilateral primary osteoarthritis of knee, M54.16 - Radiculopathy, lumbar region, R73.03 - Prediabetes, Z99.89 - Dependence on other enabling machines and devices Medications: New zolpidem (Ambien) 5 mg PO BEDTIME PRN 30 tabs 0RF sleep
== END 2024-12-17 10:17 | disposition home or self-care (01) ==
PROVIDERS: PCP Internal Medicine; Visit Provider Internal Medicine
DX: I48.11 Longstanding persistent atrial fibrillation (principal); R73.03 Prediabetes; E03.8 Other specified hypothyroidism; F33.41 Major depressive disorder, recurrent, in partial remission; G47.00 Insomnia, unspecified; Z99.89 Dependence on other enabling machines and devices; M16.0 Bilateral primary osteoarthritis of hip; M17.0 Bilateral primary osteoarthritis of knee; M54.16 Radiculopathy, lumbar region

== ENCOUNTER 2024-12-17 09:44 | Outpatient (REF) | payer MEDICARE, SELFPAY ==
[2024-12-17 13:39] LABS: MANUAL DIFF FLAG NO
[2024-12-17 13:56] LABS: Basophils Absolute Auto 0.1 X10*3/uL (0.0-0.2); Basophils Percent Auto 0.7 % (0-2); Eosinophils Absolute Auto 0.2 X10*3/uL (0.0-0.4); Eosinophils Percent Auto 3.1 % (0-4); Hematocrit 38.4 % (37.0-47.0); Hemoglobin 12.5 g/dl (12.0-16.0); Imm Gran Abs Auto 0.03 X10*3/uL (0.00-0.03); Imm Gran Pct Auto 0.4 % (0.0-0.4); Lymphocytes Absolute Auto 1.5 X10*3/uL (1.2-4.9); Lymphocytes Percent Auto 22.4 % (20-40); Mean Corpuscular HGB Conc 32.6 g/dl (31.0-35.0); Mean Corpuscular Volume 95.3 fL (80.0-98.0); Mean Platelet Volume 10.3 fL (9.4-12.3); Monocytes Absolute Auto 0.7 X10*3/uL (0.1-1.2); Monocytes Percent Auto 10.5 % (2-11); Neutrophils Absolute Auto 4.3 x10*3/uL (2.0-8.3); Neutrophils Percent Auto 62.9 % (45-73); Platelet Count 241 X10*3/uL (160-400); Red Blood Count 4.03 X10*6/uL (4.20-5.50); Red Cell Distribution Width 13.2 % (11.0-16.0); White Blood Count 6.9 X10*3/uL (4.8-10.8)
[2024-12-17 14:24] LABS: Vitamin B12 447 pg/mL (200-900)
[2024-12-17 14:26] LABS: Alanine Aminotransferase 13 U/L (0-31); Albumin Level 3.4 g/dL (3.5-5.0); Alkaline Phosphatase 139 U/L (39-117); Anion Gap 11 (12-20); Aspartate Amino Transferase 28 U/L (5-31); Bilirubin Total 0.7 mg/dL (0.0-1.0); Blood Urea Nitrogen 14 mg/dL (9-16); Calcium 8.7 mg/dL (8.4-10.2); Carbon Dioxide 27 mmol/L (22-29); Chloride 109 mmol/L (96-108); Estimated Glomerular Filt Rate > 60; Glucose Random 90 mg/dL (60-115); Potassium 3.8 mmol/L (3.3-5.1); Sodium 143 mmol/L (135-145); Total Protein 6.6 g/dL (6.5-8.0)
[2024-12-18 07:49] LABS: LDL Cholesterol Direct 70 mg/dL (<100)
[2024-12-21 13:09] LABS: Vitamin D 25-OH, D2 <4 ng/mL; Vitamin D 25-OH, D3 15 ng/mL; Vitamin D 25-OH, Total 15 ng/mL (30-100)
== END 2024-12-17 09:45 | disposition home or self-care (01) ==
LOC: HO.HMGCLDS 09:44
PROVIDERS: PCP Internal Medicine; Visit Provider Internal Medicine
DX: I48.11 Longstanding persistent atrial fibrillation (principal); R73.03 Prediabetes; E03.8 Other specified hypothyroidism; F33.41 Major depressive disorder, recurrent, in partial remission; G47.00 Insomnia, unspecified; M16.0 Bilateral primary osteoarthritis of hip; M17.0 Bilateral primary osteoarthritis of knee; M54.16 Radiculopathy, lumbar region; Z79.01 Long term (current) use of anticoagulants; Z79.899 Other long term (current) drug therapy; Z99.89 Dependence on other enabling machines and devices
CPT/HCPCS: 36415; 80053; 82306; 82607; 83721; 83735; 84443; 85025; 96127; 99212

== ENCOUNTER 2025-02-12 11:56 | Outpatient (AMB) | payer MEDICARE, SELFPAY ==
--- NOTE | 2025-02-12 12:32 | MHC.OFFVIS ---
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 Overall, feeling good. No cardiac complaints. 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 LFT elevation Elevated TSH Irregular heart rate Osteoarthritis of right knee Arthritis Social History Housing: House Patient Tobacco Use Status: Former Tobacco user e-Cigarette/Vaping Use: Never Used service: No Current occupational status: retired Current occupation: right handed Cognitive needs: No Hearing needs: No Vision needs: No Review of Systems Const Denies chills, Denies fatigue, Denies fever(s), Denies frequent falls, Denies weakness, Denies weight gain and Denies weight loss ENT Denies dizziness Card Denies chest pain, Denies leg edema, Denies lightheadedness, Denies palpitations, Denies dyspnea and Denies dyspnea on exertion Resp Denies cough, Denies dyspnea and Denies dyspnea on exertion GI Denies hematochezia Musc Denies abnormal gait, Denies muscle weakness, Denies numbness, Denies radiating pain into limb and Denies tingling Neuro Denies abnormal gait, Denies dizziness, Denies frequent falls, Denies numbness, Denies tingling and Denies weakness Endo Denies fatigue and Denies palpitations Physical Exam Vital Signs: Last Vital Signs Pulse 70 02/12/25 12:34 BP 120/72 02/12/25 12:34 Const General: comfortable and no acute distress Orientation/consciousness: patient oriented x3 HEENT Other: Unremarkable Head: Yes normal to inspection Neck Neck: Yes normal visual inspection Chest Chest palpation & inspection: normal inspection of the chest Resp Auscultation: clear to auscultation bilaterally Cardio Palpation: normal PMI Heart sounds: S1 normal heart sound present, S2 normal heart sound present, no gallops, no murmurs and no rubs GI Palpation (GI): Soft to palpation Back/Spine/Pelvis Other: unremarkable Skin General skin exam: no rashes or lesions noted Neuro General: patient oriented x3 Extrem General: Yes normal to inspection Psych Mental Status: mental status grossly normal Office Procedures EKG Details: EKG with atrial fibrillation at a rate of 70/Min; low-voltage QRS complexes; cannot exclude old anterior infarct. [id number], Complete Assessment & Plan Assessment & Plan (1) Persistent atrial fibrillation: Code(s): I48.19 - Other persistent atrial fibrillation Category: Medical Plan Cardiac studies reviewed. Echocardiogram with LVEF of 55-60%. No wall motion abnormalities and otherwise unremarkable. In the Holter monitor, underlying rhythm is atrial fibrillation with an average rate of 86/Min. Overall, thought to have had adequate rate control. Continue beta-blockers and anticoagulation without changes. She seems otherwise stable. They will call us with any ongoing concerns. Discussed with daughter who came for appointment. Patient Instructions: - Continue taking your prescribed medications for Atrial Fibrillation as directed by your healthcare provider. - Follow up regularly with PCP to monitor your health condition, including any arthritis symptoms. - Be aware of any changes in the fluttering sensation or other symptoms, and report them during your regular visits. - If experiencing any worsening symptoms or new health concerns, contact your healthcare provider. Coding Level of Care Code Est Pt Level 3 (96483) Diagnoses Persistent atrial fibrillation I48.19 CPT Codes EKG - CPT: 52229-[id number], Complete ([id number])
[2025-02-12 12:34] VITALS: BP 120/72; PULSE 70
== END 2025-02-12 12:48 | disposition home or self-care (01) ==
LOC: HO.HCS 11:56
PROVIDERS: PCP Internal Medicine; Visit Provider Internal Medicine
DX: I48.19 Other persistent atrial fibrillation (principal)
CPT/HCPCS: 93010; 99213

== ENCOUNTER → 2025-02-12 11:56 | Outpatient (BNVA) | payer MEDICARE, SELFPAY | PROVIDERS: PCP Internal Medicine; Visit Provider Internal Medicine | DX: I48.19 Other persistent atrial fibrillation (principal) | CPT/HCPCS: 93005; 99212 ==

== ENCOUNTER 2025-03-24 09:45 | Outpatient (AMB) | payer MEDICARE, SELFPAY ==
--- NOTE | 2025-03-24 09:56 | A.OFFPC_ITS ---
Vital Signs 03/24/25 09:58 Height 5 ft 1 in BMI Reason not done Patient refused/unable BP 138/80 Blood Pressure Location Rt brachial Position Sitting Pulse 68 Pulse Source Pulse Oximeter Temp 98.9 F Temp Source Oral Pulse Oximetry (%) 98 Oxygen Delivery Method Room Air Intake Visit Reasons: Follow up Accompanied by: Daughter Allergies No Known Allergies Allergy (Verified 03/24/25 10:00) Medication List - Last Reconciled 03/24/25 by Nico Royal MD apixaban (Eliquis) 5 mg PO BID escitalopram oxalate (Lexapro) 10 mg PO .q am levothyroxine 25 mcg PO DAILY lorazepam 0.5 mg PO BEDTIME PRN 90 days metoprolol succinate ER (Toprol XL) 50 mg PO DAILY tramadol 50 mg PO BID 90 days zolpidem (Ambien) 5 mg PO BEDTIME PRN Tobacco use date assessed: 03/24/25 Fall risk assessment: No Falls in past year Last assessed Fall Risk: 03/24/25 Dental Screening Dental Screen Date: 03/24/25 Did you have a dental visit in the last 12 months?: No Did you have a dental problem in the last 6 months where you did not have access to dental care?: No Was dental information given to patient?: Patient declined HPI Follow up HPI Details History - The patient is an 89-year-old female p resenting for a regular follow-up appointment. - The patient reports intermittent swell ing in her left hand, which has been ongoing for some time. The swelling does not affect her movement, and when her hand swells, it improves when elevated. - The patient also experiences sleeping difficulties and has recently resumed the use of Zolpidem to aid sleep. - Her arthritis symptoms, referred to by the patient as impacting her whole body, seem to contribute to the swelling and discomfort in the hand. - The patient states she previously had labs done in November which showed a deficiency in vitamin D. She acknowledges her osteoarthritis but has not regularly supplemented vitamin D despite verbalizing an awareness of its connection to joint health. Medical History: - left hand swelling off and on - Osteoarthritis - Vitamin D deficiency - atrial fibrillation managed by Cardiol [facility] - sitting in wheelchair risk of fall - obesity - long-term use of blood thinners - tramadol dependent for pain management Medications: - Lexapro 10 mg - Levothyroxine 25 mcg - Metoprolol 50 mg - Blood thinner (unspecified type) from the cardiology office - Tramadol, twice daily - Zolpidem, as needed for sleep Social History: - Lives with her daughter who is present during the visit. - Recently ceased excessive consumption of potato chips due to swelling concerns. - Enjoys spending time outdoors in [place] weather. - Reports being proactive about her heal th but does not do yearly diabetes screenings. Diagnostic Results: - Labs from November: - CBC: Normal - Electrolytes: Normal - Kidney function: Normal - Liver function: Stable - Vitamin D: Deficient Problem List - left hand swelling off and on - Osteoarthritis - Vitamin D deficiency - atrial fibrillation managed by Cardiol [facility] - sitting in wheelchair risk of fall - obesity - long-term use of blood thinners - tramadol dependent for pain management Patient Instructions - Elevate the hand if it becomes swollen . - Limit intake of salty foods like potat o chips. - Continue taking vitamin D supplements regularly, using chewable forms if preferred. - Continue with current medications, but efforts should be made not to use sleeping pills every night. - Follow up with blood tests a few days before the next visit, approximately in three months. - try to skip a night without zolpidem t o avoid dependency - tramadol script sent for 3 months Review of Systems - General: No fever no chills - Neurological: No headaches no dizziness - Ear nose throat: No sore throat no hearing difficulty no ear pain - Cardiovascular: No syncope, no chest pain, no palpitations - Gastrointestinal: No nausea vomiting or diarrhea - Endocrine: No polyuria polydipsia no heat intolerance - Genitourinary: No dysuria , no blood in urine Physical Exam General: No acute distress HEENT: No acute findings Neck: Supple Respiratory system: Lungs are clear Cardiovascular: S1-S2 irregularly irregular Gastrointestinal: No pain Extremities: Minimal puffiness left hand without any pain, full range of motion intact 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 x3 motor sensory intact Skin: Normal turgor [facility] Medical History (Updated 03/24/25 @ 10:22 by Nico Royal MD) Risk for falls Persistent atrial fibrillation Medicare annual wellness visit, subsequent Encounter for anticoagulation discussion and counseling Difficulty walking 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 1. Little interest or pleasure in doing things: more than half the days 2. Feeling down, depressed, or hopeless: not at all 3. Trouble falling or staying asleep, or sleeping too much: not at all 4. Feeling tired or having little energy: not at all 5. Poor appetite or overeating: not at all 6. Feeling bad about yourself - or that you are a failure or have let yourself or your family down: not at all 7. Trouble concentrating on things, such as reading the newspaper or watching television: not at all 8. Moving or speaking so slowly that other people could have noticed. Or the opposite - being so fidgety or restless that you have been moving around a lot more than usual: not at all 9. Thoughts that you would be better off or of hurting yourself in some way: not at all Total score: 2 Depression Screening Interpretation: Negative Depression Screening Done: Yes [id number] - PHQ-9 Billing: Yes Source: Developed by Drs. Adonis Sandra, Aline Payne, Venu Segal and colleagues, with an educational stephenie from [employer]. Thrive Questionnaire Date Thrive assessed: 03/24/25 I am a: Parent/Caregiver What is your living situation today?: I have a steady place to live Within the past 12 months, did the food you bought not last and you didn't have the money to get more?: Never true Within the past 12 months, did you worry whether your food would run out before you got money to buy more?: Never true Do you have trouble paying for medicines?: No Do you have trouble getting transportation to medical appointments?: No Do you have trouble paying your heating and electricity bill?: No Do you have trouble taking care of your child, family member or friend?: No Do you have trouble with day-to-day activities such as bathing, preparing meals, shopping, managing finances, etc.?: No Are you currently unemployed and looking for a job?: No Are you interested in more education?: No Please select the resources that you would like help with: None Currently or been in a relationship where the following occur: I choose not to answer THRIVE Score: 0 AUDIT C Alcohol Use Questionnaire (AUDIT-C) 1. How often do you have a drink containing alcohol?: Never 3. How often do you have six or more drinks on one occasion?: Never Total Score: 0 Score Reviewed/Action Taken: Yes RADHA-7 AMB Questionnaire RADHA-7 Date RADHA - 7 assessed: 03/24/25 Feeling nervous, anxious, or on edge: 0 = Not at all Not being able to stop or control worryin = Not at all Worrying too much about different things: 0 = Not at all Trouble relaxin = Not at all Being so restless that it is hard to sit still: 0 = Not at all Becoming easily annoyed or irritable: 0 = Not at all Feeling afraid as if something awful might happen: 0 = Not at all Total RADHA-7 score (0-4 normal; 5-9 mild; 10-14 moderate; 15-21 severe): 0 Source: Developed by Drs. Adonis Sandra, Aline Payne, Venu Segal and colleagues, with an educational stephenie from [employer]. Physical exam (Primary Care) Vital Signs: Last Vital Signs Temp 98.9 F 03/24/25 09:58 Pulse 68 03/24/25 09:58 BP 138/80 03/24/25 09:58 Pulse Ox 98 03/24/25 09:58 Oxygen Delivery Method Room Air 03/24/25 09:58 Tobacco/Smoking Status: Tobacco use Status Tobacco use date assessed 03/24/25 03/24/25 10:01 Patient Tobacco Use Status Former Tobacco user 03/24/25 10:01 e-Cigarette/Vaping Use Never Used 03/24/25 10:01 PHQ-9: PHQ-9 Score PHQ-9: Total score 2 03/24/25 10:15 Depression Screening Interpretation: Negative Thrive Assessment: Date of Thrive Assessment Date Thrive assessed 03/24/25 03/24/25 10:01 Currently or been in a relationship where the following occur: I choose not to answer Coding Level of Care Code Est Pt Level 4 (41783) Complex EM visit Add On G2211 Diagnoses Persistent atrial fibrillation I48.19 Depression, major, single episode, mild F32.0 Insomnia, unspecified type G47.00 Insomnia type: unspecified Pre-diabetes R73.03 Primary osteoarthritis of both hips M16.0 Osteoarthritis type: primary Primary osteoarthritis of both knees M17.0 Osteoarthritis type: primary 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 Risk for falls Z91.81 Additional Codes PHQ-9 - 64503 - PHQ-9 Billing: Yes ([id number]) Assessment & Plan Assessment & Plan (1) Persistent atrial fibrillation: Code(s): I48.19 - Other persistent atrial fibrillation Category: Medical (2) Depression, major, single episode, mild: Code(s): F32.0 - Major depressive disorder, single episode, mild Category: Medical (3) Unable to sleep: Code(s): G47.00 - Insomnia, unspecified Category: Medical Qualifiers: Insomnia type: unspecified Qualified Code(s): G47.00 - Insomnia, unspecified (4) Pre-diabetes: Code(s): R73.03 - Prediabetes Category: Medical (5) Osteoarthritis, hip, bilateral: Code(s): M16.0 - Bilateral primary osteoarthritis of hip Category: Medical Qualifiers: Osteoarthritis type: primary Qualified Code(s): M16.0 - Bilateral primary osteoarthritis of hip (6) Osteoarthritis of knees, bilateral: Code(s): M17.0 - Bilateral primary osteoarthritis of knee Category: Medical Qualifiers: Osteoarthritis type: primary Qualified Code(s): M17.0 - Bilateral primary osteoarthritis of knee (7) 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: Code(s): Z99.89 - Dependence on other enabling machines and devices Category: Medical (8) Moderate tramadol dependence: Code(s): F11.20 - Opioid dependence, uncomplicated Category: Medical (9) Risk for falls: Code(s): Z91.81 - History of falling Category: Medical Plan History - The patient is an 89-year-old female presenting for a regular follow-up appointment. - The patient reports intermittent swelling in her left hand, which has been ongoing for some time. The swelling does not affect her movement, and when her hand swells, it improves when elevated. - The patient also experiences sleeping difficulties and has recently resumed the use of Zolpidem to aid sleep. - Her arthritis symptoms, referred to by the patient as impacting her whole body, seem to contribute to the swelling and discomfort in the hand. - The patient states she previously had labs done in November which showed a deficiency in vitamin D. She acknowledges her osteoarthritis but has not regularly supplemented vitamin D despite verbalizing an awareness of its connection to joint health. Medical History: - left hand swelling off and on - Osteoarthritis - Vitamin D deficiency - atrial fibrillation managed by Cardiology - sitting in wheelchair risk of fall - obesity - long-term use of blood thinners - tramadol dependent for pain management Medications: - Lexapro 10 mg - Levothyroxine 25 mcg - Metoprolol 50 mg - Blood thinner (unspecified type) from the cardiology office - Tramadol, twice daily - Zolpidem, as needed for sleep Social History: - Lives with her daughter who is present during the visit. - Recently ceased excessive consumption of potato chips due to swelling concerns. - Enjoys spending time outdoors in [place] weather. - Reports being proactive about her health but does not do yearly diabetes screenings. Diagnostic Results: - Labs from November: - CBC: Normal - Electrolytes: Normal - Kidney function: Normal - Liver function: Stable - Vitamin D: Deficient Problem List - left hand swelling off and on - Osteoarthritis - Vitamin D deficiency - atrial fibrillation managed by Cardiology - sitting in wheelchair risk of fall - obesity - long-term use of blood thinners - tramadol dependent for pain management Patient Instructions - Elevate the hand if it becomes swollen. - Limit intake of salty foods like potato chips. - Continue taking vitamin D supplements regularly, using chewable forms if preferred. - Continue with current medications, but efforts should be made not to use sleeping pills every night. - Follow up with blood tests a few days before the next visit, approximately in three months. - try to skip a night without zolpidem to avoid dependency - tramadol script sent for 3 months Orders: Orders Complete Blood Count Auto Diff Today F32.0 - Major depressive disorder, single episode, mild, F33.41 - Major depressive disorder, recurrent, in partial remission, G47.00 - Insomnia, unspecified, I48.19 - Other persistent atrial fibrillation, M16.0 - Bilateral primary osteoarthritis of hip, M17.0 - Bilateral primary osteoarthritis of knee, R73.03 - Prediabetes, Z99.89 - Dependence on other enabling machines and devices Comprehensive Met. Panel Today F32.0 - Major depressive disorder, single episode, mild, F33.41 - Major depressive disorder, recurrent, in partial remission, G47.00 - Insomnia, unspecified, I48.19 - Other persistent atrial fibrillation, M16.0 - Bilateral primary osteoarthritis of hip, M17.0 - Bilateral primary osteoarthritis of knee, R73.03 - Prediabetes, Z99.89 - Dependence on other enabling machines and devices TSH reflex Free T4 Today F32.0 - Major depressive disorder, single episode, mild, F33.41 - Major depressive disorder, recurrent, in partial remission, G47.00 - Insomnia, unspecified, I48.19 - Other persistent atrial fibrillation, M16.0 - Bilateral primary osteoarthritis of hip, M17.0 - Bilateral primary osteoarthritis of knee, R73.03 - Prediabetes, Z99.89 - Dependence on other enabling machines and devices LDL Cholesterol Direct Today F32.0 - Major depressive disorder, single episode, mild, F33.41 - Major depressive disorder, recurrent, in partial remission, G47.00 - Insomnia, unspecified, I48.19 - Other persistent atrial fibrillation, M16.0 - Bilateral primary osteoarthritis of hip, M17.0 - Bilateral primary osteoarthritis of knee, R73.03 - Prediabetes, Z99.89 - Dependence on other enabling machines and devices Vitamin D 25-OH (D2 and D3) Today F32.0 - Major depressive disorder, single episode, mild, F33.41 - Major depressive disorder, recurrent, in partial remission, G47.00 - Insomnia, unspecified, I48.19 - Other persistent atrial fibrillation, M16.0 - Bilateral primary osteoarthritis of hip, M17.0 - Bilateral primary osteoarthritis of knee, R73.03 - Prediabetes, Z99.89 - Dependence on other enabling machines and devices Medications: Changed From zolpidem (Ambien) 5 mg PO BEDTIME PRN 30 tabs 0RF sleep To zolpidem (Ambien) 5 mg PO BEDTIME 90 days PRN 45 tabs 0RF sleep Refilled tramadol 50 mg PO BID 90 days 180 tabs 0RF
[2025-03-24 09:58] VITALS: BP 138/80; PULSE 68; TEMP 37.2; O2SAT 98
== END 2025-03-24 10:14 | disposition home or self-care (01) ==
LOC: HO.HMCC 09:46
PROVIDERS: PCP Internal Medicine; Visit Provider Internal Medicine
DX: I48.19 Other persistent atrial fibrillation (principal); F11.20 Opioid dependence, uncomplicated; F32.0 Major depressive disorder, single episode, mild; G47.00 Insomnia, unspecified; R73.03 Prediabetes; M16.0 Bilateral primary osteoarthritis of hip; M17.0 Bilateral primary osteoarthritis of knee; Z99.89 Dependence on other enabling machines and devices; Z91.81 History of falling

== ENCOUNTER → 2025-03-24 09:45 | Outpatient (BNVA) | payer MEDICARE, SELFPAY | PROVIDERS: PCP Internal Medicine; Visit Provider Internal Medicine | DX: I48.19 Other persistent atrial fibrillation (principal); F32.0 Major depressive disorder, single episode, mild; G47.00 Insomnia, unspecified; R73.03 Prediabetes; M16.0 Bilateral primary osteoarthritis of hip; M17.0 Bilateral primary osteoarthritis of knee; F11.20 Opioid dependence, uncomplicated; Z91.81 History of falling; Z99.89 Dependence on other enabling machines and devices | CPT/HCPCS: 96127; 99212 ==

== ENCOUNTER 2025-06-17 09:20 | Outpatient (REF) | payer MEDICARE, SELFPAY ==
[2025-06-17 10:08] LABS: MANUAL DIFF FLAG NO
[2025-06-17 10:22] LABS: Hematocrit 38.0 % (37.0-47.0); Hemoglobin 12.6 g/dl (12.0-16.0); Imm Gran Abs Auto 0.09 X10*3/uL (0.00-0.03); Imm Gran Pct Auto 1.0 % (0.0-0.4); Lymphocytes Absolute Auto 1.8 X10*3/uL (1.2-4.9); Mean Corpuscular HGB Conc 33.2 g/dl (31.0-35.0); Mean Corpuscular Hemoglobin 31.4 pg (27.0-33.0); Mean Corpuscular Volume 94.8 fL (80.0-98.0); NRBC Abs Auto 0.000 X10*3/uL (0.0-0.012); NRBC Pct Auto 0.0 /100WBC (0.0-0.2); Platelet Count 309 X10*3/uL (160-400); Red Blood Count 4.01 X10*6/uL (4.20-5.50); White Blood Count 9.2 X10*3/uL (4.8-10.8)
[2025-06-17 10:59] LABS: Alanine Aminotransferase 17 U/L (0-31); Albumin Level 3.5 g/dL (3.5-5.0); Alkaline Phosphatase 147 U/L (39-117); Anion Gap 10 (12-20); Aspartate Amino Transferase 28 U/L (5-31); Blood Urea Nitrogen 12 mg/dL (9-16); Calcium 8.6 mg/dL (8.4-10.2); Carbon Dioxide 30 mmol/L (22-29); Chloride 106 mmol/L (96-108); Potassium 3.7 mmol/L (3.3-5.1); Sodium 142 mmol/L (135-145); Total Protein 6.2 g/dL (6.5-8.0)
[2025-06-17 11:32] LABS: Estimated Glomerular Filt Rate > 60
[2025-06-20 18:32] LABS: Vitamin D 25-OH, D2 <4 ng/mL; Vitamin D 25-OH, D3 18 ng/mL; Vitamin D 25-OH, Total 18 ng/mL (30-100)
== END 2025-06-17 09:21 | disposition home or self-care (01) ==
LOC: HO.HMGCLDS 09:20
PROVIDERS: PCP Internal Medicine; Visit Provider Internal Medicine
DX: M16.0 Bilateral primary osteoarthritis of hip (principal); M17.0 Bilateral primary osteoarthritis of knee; I48.19 Other persistent atrial fibrillation; G47.00 Insomnia, unspecified; F33.41 Major depressive disorder, recurrent, in partial remission; R73.03 Prediabetes; Z99.89 Dependence on other enabling machines and devices
CPT/HCPCS: 36415; 80053; 82306; 83721; 84443; 85025

== ENCOUNTER 2025-06-24 09:41 | Outpatient (AMB) | payer MEDICARE, SELFPAY ==
--- NOTE | 2025-06-24 10:00 | A.OFFPC_ITS ---
Vital Signs 06/24/25 10:01 Height 5 ft 1 in BMI Reason not done Patient refused/unable BP 130/78 Blood Pressure Location Lt brachial Position Sitting Pulse 76 Pulse Source Pulse Oximeter Pulse Oximetry (%) 98 Oxygen Delivery Method Room Air Intake Visit Reasons: 3m follow up Network Director Required: No Allergies No Known Allergies Allergy (Verified 06/24/25 10:01) Medication List - Last Reconciled 06/24/25 by Nico Royal MD apixaban (Eliquis) 5 mg PO BID escitalopram oxalate (Lexapro) 10 mg PO .q am levothyroxine 25 mcg PO DAILY metoprolol succinate ER 50 mg PO DAILY tramadol 50 mg PO BID 90 days zolpidem (Ambien) 5 mg PO BEDTIME PRN 90 days Tobacco use date assessed: 03/24/25 Fall risk assessment: No Falls in past year Last assessed Fall Risk: 06/24/25 Dental Screening Dental Screen Date: 03/24/25 HPI 3m follow up HPI Details History The patient is an 89-year-old female presenting longitudinal care appointment with the daughter Sleep disturbance: - Reports difficulties sleeping adequate ly. - Currently using Zolpidem inconsistentl y; not every night, but usually every couple of nights. - Sleep difficulties occur more frequent ly if she has not eaten sufficiently; reports waking between 3-4 a.m. feeling hungry. Medication management: - Discusses problems with sleep medicati ons and their use. - Currently taking multiple medications for various health issues and requires confirmation that she is taking medications correctly. Medical History: - Sleep disturbance: Reports ongoing iss ues with sleep and currently prescribed Zolpidem. - Hyperlipidemia: Cholesterol levels are very good; LDL level is 63. - Vitamin D deficiency: Currently improv ing but still lower than desired. - Thyroid function is normal. - No anemia as per recent CBC. - Reports one liver enzyme slightly elev ated but stable. - Reports stable kidney function and jessica ropriate electrolyte levels. Medications: - Zolpidem (for Sleep disturbance). - Eliquis (anticoagulation). - Escitalopram 10 mg (for Depression/Anx iety). - Levothyroxine 25 mcg (for Thyroid horm one replacement). - Tramadol (for Pain relief). Social History: - Diet includes fruit consumption such a s plums and peaches. - Prefers Twinkies. If feel hungry in the middle of the night - Historically reduced intake of potato chips, transitioning from unhealthier op tions. - No dairy preference noted (yogurt disl iked). - Prefers Special K cereal or fruit for breakfast and consumes a bowl of fruit daily. Problem List - Sleep disturbance - Hyperlipidemia - Vitamin D deficiency - Thyroid disease - Elevated liver enzyme - Pain multiple joints - walker dependent - long-term use of blood thinners for at rial fibrillation management Diagnostic results - Random blood sugar: 101 (normal) - LDL cholesterol: 63 (normal, less than 70) - Recent labs indicate slight elevation in one liver enzyme, stable monitoring - Vitamin D levels are low but improving - Complete Blood Count (CBC): normal, no anemia [place] of Care: Wrapper Sheeter Patient Instructions - Continue medications as prescribed. - Monitor and manage dietary habits, valdo ecially before sleeping. - Reduce consumption of Twinkies and oth er unhealthy snacks. - Consider alternative night snacks for hunger at night. - Obtain flu vaccine from pharmacy. - Review need for tetanus vaccination an d obtain if necessary. - Consider shingles vaccine if not curre nt. 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: Alert awake oriented x3 dependent on walker for ambulation skin: Normal turgor PFSH Medical History Risk for falls Persistent atrial fibrillation Medicare annual wellness visit, subsequent Encounter for anticoagulation discussion and counseling Difficulty walking Hx of senior living use of blood thinners LFT elevation Elevated TSH Irregular heart rate Osteoarthritis of right knee Arthritis Social History Housing: House Patient Tobacco Use Status: Former Tobacco user e-Cigarette/Vaping Use: Never Used service: No Current occupational status: retired Current occupation: right handed Cognitive needs: No Hearing needs: No Vision needs: No Questionnaire Thrive Questionnaire Date Thrive assessed: 03/24/25 I am a: Parent/Caregiver What is your living situation today?: I have a steady place to live Within the past 12 months, did the food you bought not last and you didn't have the money to get more?: Never true Within the past 12 months, did you worry whether your food would run out before you got money to buy more?: Never true Do you have trouble paying for medicines?: No Do you have trouble getting transportation to medical appointments?: No Do you have trouble paying your heating and electricity bill?: No Do you have trouble taking care of your child, family member or friend?: No Do you have trouble with day-to-day activities such as bathing, preparing meals, shopping, managing finances, etc.?: No Are you currently unemployed and looking for a job?: No Are you interested in more education?: No Please select the resources that you would like help with: None Currently or been in a relationship where the following occur: I choose not to answer THRIVE Score: 0 AUDIT C Alcohol Use Questionnaire (AUDIT-C) 1. How often do you have a drink containing alcohol?: Never 3. How often do you have six or more drinks on one occasion?: Never Total Score: 0 Score Reviewed/Action Taken: Yes RADHA-7 AMB Questionnaire RADHA-7 Date RADHA - 7 assessed: 03/24/25 Source: Developed by Drs. Adonis Sandra, Aline Payne, Venu Segal and colleagues, with an educational stephenie from [employer] Physical exam (Primary Care) Vital Signs: Last Vital Signs Pulse 76 06/24/25 10:01 BP 130/78 06/24/25 10:01 Pulse Ox 98 06/24/25 10:01 Oxygen Delivery Method Room Air 06/24/25 10:01 Tobacco/Smoking Status: Tobacco use Status Tobacco use date assessed 03/24/25 06/24/25 10:04 Patient Tobacco Use Status Former Tobacco user 06/24/25 10:04 e-Cigarette/Vaping Use Never Used 06/24/25 10:04 Thrive Assessment: Date of Thrive Assessment Date Thrive assessed 03/24/25 06/24/25 10:04 Currently or been in a relationship where the following occur: I choose not to answer Coding Level of Care Code Est Pt Level 4 (38072) Complex EM visit Add On G2211 Diagnoses Persistent atrial fibrillation I48.19 Depression, major, single episode, mild F32.0 Insomnia, unspecified type G47.00 Insomnia type: unspecified Pre-diabetes R73.03 Primary osteoarthritis of both hips M16.0 Osteoarthritis type: primary Primary osteoarthritis of both knees M17.0 Osteoarthritis type: primary 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 Risk for falls Z91.81 Time Spent (min) 30 Comment Complex patient, [id number] with the patient and daughter Assessment & Plan Assessment & Plan (1) Persistent atrial fibrillation: Code(s): I48.19 - Other persistent atrial fibrillation Category: Medical (2) Depression, major, single episode, mild: Code(s): F32.0 - Major depressive disorder, single episode, mild Category: Medical (3) Unable to sleep: Code(s): G47.00 - Insomnia, unspecified Category: Medical Qualifiers: Insomnia type: unspecified Qualified Code(s): G47.00 - Insomnia, unspecified (4) Pre-diabetes: Code(s): R73.03 - Prediabetes Category: Medical (5) Osteoarthritis, hip, bilateral: Code(s): M16.0 - Bilateral primary osteoarthritis of hip Category: Medical Qualifiers: Osteoarthritis type: primary Qualified Code(s): M16.0 - Bilateral primary osteoarthritis of hip (6) Osteoarthritis of knees, bilateral: Code(s): M17.0 - Bilateral primary osteoarthritis of knee Category: Medical Qualifiers: Osteoarthritis type: primary Qualified Code(s): M17.0 - Bilateral primary osteoarthritis of knee (7) 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 - Currently using Zolpidem inconsistently; not every night, but usually every couple of nights. - Sleep difficulties occur more frequently if she has not eaten sufficiently; reports waking between 3-4 a.m. feeling hungry. Medication management: - Discusses problems with sleep medications and their use. - Currently taking multiple medications for various health issues and requires confirmation that she is taking medications correctly. Medical History: - Sleep disturbance: Reports ongoing issues with sleep and currently prescribed Zolpidem. - Hyperlipidemia: Cholesterol levels are very good; LDL level is 63. - Vitamin D deficiency: Currently improving but still lower than desired. - Thyroid function is normal. - No anemia as per recent CBC. - Reports one liver enzyme slightly elevated but stable. - Reports stable kidney function and appropriate electrolyte levels. Medications: - Zolpidem (for Sleep disturbance). - Eliquis (anticoagulation). - Escitalopram 10 mg (for Depression/Anxiety). - Levothyroxine 25 mcg (for Thyroid hormone replacement). - Tramadol (for Pain relief). Social History: - Diet includes fruit consumption such as plums and peaches. - Prefers Twinkies. If feel hungry in the middle of the night - Historically reduced intake of potato chips, transitioning from unhealthier options. - No dairy preference noted (yogurt disliked). - Prefers Special K cereal or fruit for breakfast and consumes a bowl of fruit daily. Problem List - Sleep disturbance - Hyperlipidemia - Vitamin D deficiency - Thyroid disease - Elevated liver enzyme - Pain multiple joints - walker dependent - long-term use of blood thinners for atrial fibrillation management Diagnostic results - Random blood sugar: 101 (normal) - LDL cholesterol: 63 (normal, less than 70) - Recent labs indicate slight elevation in one liver enzyme, stable monitoring - Vitamin D levels are low but improving - Complete Blood Count (CBC): normal, no anemia [place] of Care: Wrapper Sheeter Patient Instructions - Continue medications as prescribed. - Monitor and manage dietary habits, especially before sleeping. - Reduce consumption of Twinkies and other unhealthy snacks. - Consider alternative night snacks for hunger at night. - Obtain flu vaccine from pharmacy. - Review need for tetanus vaccination and obtain if necessary. - Consider shingles vaccine if not current. - tramadol refill sent Follow-up 3 months Medications: Discontinued lorazepam Discontinued Reason: Doctor's Order 0.5 mg PO BEDTIME 90 days PRN 90 tabs 0RF To sleep
[2025-06-24 10:01] VITALS: BP 130/78; PULSE 76; O2SAT 98
== END 2025-06-24 10:27 | disposition home or self-care (01) ==
LOC: HO.HMCC 09:42
PROVIDERS: PCP Internal Medicine; Visit Provider Internal Medicine
DX: I48.19 Other persistent atrial fibrillation (principal); F11.20 Opioid dependence, uncomplicated; F32.0 Major depressive disorder, single episode, mild; G47.00 Insomnia, unspecified; R73.03 Prediabetes; M16.0 Bilateral primary osteoarthritis of hip; M17.0 Bilateral primary osteoarthritis of knee; Z99.89 Dependence on other enabling machines and devices; Z91.81 History of falling

== ENCOUNTER → 2025-06-24 09:41 | Outpatient (BNVA) | payer MEDICARE, SELFPAY | PROVIDERS: PCP Internal Medicine; Visit Provider Internal Medicine | DX: M16.0 Bilateral primary osteoarthritis of hip (principal); I48.19 Other persistent atrial fibrillation; F32.0 Major depressive disorder, single episode, mild; G47.00 Insomnia, unspecified; R73.03 Prediabetes; M17.0 Bilateral primary osteoarthritis of knee; F11.20 Opioid dependence, uncomplicated; Z91.81 History of falling; Z99.89 Dependence on other enabling machines and devices | CPT/HCPCS: 99212 ==

== ENCOUNTER 2025-09-29 08:17 | Outpatient (AMB) | payer MEDICARE, SELFPAY ==
--- NOTE | 2025-09-29 09:05 | MHC.PC.OV ---
Intake Visit Reasons: 3 month follow up Allergies No Known Allergies Allergy (Verified 06/24/25 10:01) Medication List - Last Reconciled 09/29/25 by Nico Royal MD apixaban (Eliquis) 5 mg PO BID escitalopram oxalate (Lexapro) 10 mg PO .q am levothyroxine 25 mcg PO DAILY metoprolol succinate ER 50 mg PO DAILY tramadol 50 mg PO BID 90 days zolpidem (Ambien) 5 mg PO BEDTIME PRN 90 days Tobacco use date assessed: 03/24/25 Dental Screening Dental Screen Date: 03/24/25 HPI 3 month follow up HPI Details History The patient is an 89-year-old female presenting longitudinal care appointment with the daughter patient is no longer taking ambian . able to sleep without it still taking tramadol for her sever Osteoarthritis multiple joints need refill continue med for thyroid dep and anxiety stable, continue Lexapro 10 mg Problem List - Sleep disturbance - Hyperlipidemia - Vitamin D deficiency - Thyroid disease - Pain multiple joints - walker dependent - long-term use of blood thinners for atrial fibrillation management Patient Instructions - Continue medications as prescribed. - tramadol refill sent Follow-up 3 months Review of Systems General: No fever no chills neurological: No headaches no dizziness ear nose throat: No sore throat no hearing difficulty no ear pain cardiovascular: No syncope, no chest pain, no palpitations gastrointestinal: No nausea vomiting or diarrhea skin: No new complaints [facility] Medical History Risk for falls Persistent atrial fibrillation Medicare annual wellness visit, subsequent Encounter for anticoagulation discussion and counseling Difficulty walking Hx of skilled nursing use of blood thinners LFT elevation Elevated TSH Irregular heart rate Osteoarthritis of right knee Arthritis Social History Housing: House Patient Tobacco Use Status: Former Tobacco user e-Cigarette/Vaping Use: Never Used service: No Current occupational status: retired Current occupation: right handed Cognitive needs: No Hearing needs: No Vision needs: No Questionnaire Thrive Questionnaire Date Thrive assessed: 12/17/24 I am a: Parent/Caregiver What is your living situation today?: I have a steady place to live Within the past 12 months, did the food you bought not last and you didn't have the money to get more?: Never true Within the past 12 months, did you worry whether your food would run out before you got money to buy more?: Never true Do you have trouble paying for medicines?: No Do you have trouble getting transportation to medical appointments?: No Do you have trouble paying your heating and electricity bill?: No Do you have trouble taking care of your child, family member or friend?: No Do you have trouble with day-to-day activities such as bathing, preparing meals, shopping, managing finances, etc.?: No Are you currently unemployed and looking for a job?: No Are you interested in more education?: No Please select the resources that you would like help with: None Currently or been in a relationship where the following occur: I choose not to answer THRIVE Score: 0 RADHA-7 AMB Questionnaire RADHA-7 Date RADHA - 7 assessed: 03/24/25 Source: Developed by Drs. Adonis Sandra, Aline Payne, Venu Segal and colleagues, with an educational stephenie from [employer]. Physical exam (Primary Care) Tobacco/Smoking Status: Tobacco use Status Tobacco use date assessed 03/24/25 09/29/25 09:09 Patient Tobacco Use Status Former Tobacco user 09/29/25 09:09 e-Cigarette/Vaping Use Never Used 09/29/25 09:09 Thrive Assessment: Date of Thrive Assessment Date Thrive assessed 12/17/24 09/29/25 09:09 Currently or been in a relationship where the following occur: I choose not to answer Telehealth Telehealth Telehealth Platform: [facility] Location of provider rendering services: practice address Location of patient: address on file Patient Identification confirmed using: Name, : Yes Telehealth method: video Patient verbally consented to treatment: Yes Patient verbally consented to billing insurance company: Yes Patient informed of any privacy concerns related to visit: Yes Minutes spent on Phone/Video with Pt.: 13 Coding Level of Care Code Tele Est Pt Level 3 (63635) Diagnoses Persistent atrial fibrillation I48.19 Depression, major, single episode, mild F32.0 Primary osteoarthritis of both hips M16.0 Osteoarthritis type: primary Primary osteoarthritis of both knees M17.0 Osteoarthritis type: primary 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 Risk for falls Z91.81 Assessment & Plan Assessment & Plan (1) Persistent atrial fibrillation: Code(s): I48.19 - Other persistent atrial fibrillation Category: Medical (2) Depression, major, single episode, mild: Code(s): F32.0 - Major depressive disorder, single episode, mild Category: Medical (3) Osteoarthritis, hip, bilateral: Code(s): M16.0 - Bilateral primary osteoarthritis of hip Category: Medical Qualifiers: Osteoarthritis type: primary Qualified Code(s): M16.0 - Bilateral primary osteoarthritis of hip (4) Osteoarthritis of knees, bilateral: Code(s): M17.0 - Bilateral primary osteoarthritis of knee Category: Medical Qualifiers: Osteoarthritis type: primary Qualified Code(s): M17.0 - Bilateral primary osteoarthritis of knee (5) 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 able to sleep without it still taking tramadol for her sever Osteoarthritis multiple joints need refill continue med for thyroid dep and anxiety stable, continue Lexapro 10 mg Problem List - Sleep disturbance - Hyperlipidemia - Vitamin D deficiency - Thyroid disease - Pain multiple joints - walker dependent - long-term use of blood thinners for atrial fibrillation management Patient Instructions - Continue medications as prescribed. - tramadol refill sent Follow-up 3 months Medications: Refilled tramadol 50 mg PO BID 180 tabs 0RF 90 days
== END 2025-09-29 10:07 | disposition home or self-care (01) ==
LOC: HO.HMCC 08:17
PROVIDERS: PCP Internal Medicine; Visit Provider Internal Medicine
DX: I48.19 Other persistent atrial fibrillation (principal); F11.20 Opioid dependence, uncomplicated; F32.0 Major depressive disorder, single episode, mild; M16.0 Bilateral primary osteoarthritis of hip; M17.0 Bilateral primary osteoarthritis of knee; Z99.89 Dependence on other enabling machines and devices; Z91.81 History of falling